=== PATIENT | female | born 1965 | race Caucasian/White ===

== ENCOUNTER 2018-06-11 02:08 | Inpatient (IN) | payer SELFPAY ==
[2018-06-11] MEDS ORDERED: Albuterol Sulfate 2.5 mg/0.5 ml Neb ONE (03:17)
[2018-06-11] MEDS ORDERED: Albuterol Sulfate 2.5 mg/3 ml Neb ONE ×3 (03:17)
[2018-06-11 04:24] LABS: CO2 Tension 54.1 mmHg (35.0-45.0); pH, Arterial 7.26 (7.35-7.45)
[2018-06-11 04:25] LABS: Actual Bicarbonate (HCO3a) 23.8 mEq/L (22-28); Base Excess (BEa) 3.7 mEq/L (-2.0 to +3.0); Calcium, Ionized 1.3 mmol/L (1.12-1.30); Hemoglobin (Hb) 12.1 g/dL (12.0-16.0); O2 Tension (PaO2) 124.2 mmHg (80.0-100.0)
[2018-06-11 04:26] LABS: ALV-art Gradient 286.895 (0-20); Analyzer IN Cardio ER; Puncture Site RRA
[2018-06-11] MEDS ORDERED: Ondansetron HCl/PF 4 MG/2 ML Vial IVP PRN (05:20)
--- NOTE | 2018-06-11 06:33 | HP ---
CODE STATUS: FULL CODE. TIME OF EVALUATION: 5:30 a.m. PRIMARY CARE PHYSICIAN: Dr. Mora CHIEF COMPLAINT: Worsening shortness of breath. HISTORY OF PRESENT ILLNESS: This is a 53-year-old female patient with past medical history of long-t erm smoker, no other significant medical problems, came to the hospital after having severe gradually worsening shortness of breath that started for the last 3 hours as per the patient's report. Before this happened the patient was doing well, had the past 3 hours the patient's has been unable to respond to her rescue inhalers at home, got in severe respiratory distress, with labored breathin g, went into acute respiratory failure due to hypoxia and hypercapnia. The only alleviating factors were medical treatment, patient has ended up needing noninvasive positive pressure ventilation with i mprovement on BiPAP. She is still with significant wheezing bilaterally, unable to wean off the BiPA P due to significant drop in saturation and increasing breathing labor. REVIEW OF SYSTEMS: CONSTITUTIONAL: No fever or chills, generalized weakness. RESPIRATORY: The patient had cough, scant sputum production, severe shortness of breath. CARDIOVASC ULAR: No chest pain, palpitations. GASTROINTESTINAL: No nausea, vomiting or diarrhea, abdominal pain. IMPORT EXPORT COORDINATOR: No dizziness, headache or feeling lightheaded. GENITOURINARY: No burning with urination. EXTREMITIES: No leg swelling. All other systems were negative except for the findings mentioned above. PAST MEDICAL HISTORY: Negative. PAST SURGICAL HISTORY: Appendectomy, hysterectomy, tonsillectomy. PSYCHIATRIC HISTORY: Depression. SOCIAL HISTORY: Drinks socially rarely. No drugs. The patient smokes cigarettes on a daily basis. FAMILY HISTORY: Reviewed and noncontributory for current presentation. ALLERGIES: No known drug allergies. MEDICATIONS: Patient has a rescue inhaler, does not remember the name. PHYSICAL EXAMINATION: VITAL SIGNS: On presentation, blood pressure 138/82, with a heart rate 107, respiratory rate was 24, temperature 99.5, saturation was 85 on room air. GENERAL APPEARANCE: The patient is alert, oriented, not in acute distress unless the patient is off the BiPAP. HEENT: Eyes: Normal conjunctivae. Moist oral mucosa. Anicteric. NECK: No JVD. RESPIRATORY: Bilateral air entry is reduced, bilateral wheezing, symmetric expansion that is decreas ed CARDIOVASCULAR: Patient is tachycardic, regular rhythm. No murmurs, no gallop. No edema. ABDOMEN: Soft, normal bowel sounds. MUSCULOSKELETAL: Baseline range of motion and strength. No tenderness. SKIN: Warm and intact. No pallor, no rash, no redness. NEUROLOGIC: Baseline sensorium. No evidence of any new focal weakness. Baseline speech. Cranial n erves seem to be intact. PSYCHIATRIC: The patient in a good mood, oriented, optimal judgment. LABORATORY DATA: EKG with performing physician showed no significant abnormalities. Chest x-ray meenakshi wed no abnormalities. ABG was done, the patient's pH 7.26, pCO2 of 54, pO2 of 134. CBC: White count 10.9, hemoglobin 12.3 , platelet count 270. Chemistry: Sodium 145, potassium 4.1, chloride 111, CO2 of 23, anion gap 15, BUN 11, creatinine 0.9, GFR 64, glucose 137, calcium 9, total bilirubin 0.2. The rest of LFTs are ne gative. Beta natriuretic peptide is 38. Troponin is negative. ASSESSMENT AND PLAN: The patient was placed in IMCU for the following medical problems. 1. Acute hypoxic and hypercarbic respiratory failure. The patient needing noninvasive positive pres sure ventilation on BiPAP. The symptoms have improved, she is more at ease right now. We will delaney nue antibiotics, steroids and DuoNebs. Pulmonary consult. It looks like the patient has no known di agnosis of COPD. Advised to quit smoking. 2. Chronic obstructive pulmonary disease exacerbation leading to acute hypoxic respiratory failure. Treatment as above. 3. Tachycardia secondary to acute respiratory distress. We will treat underlying pathology. 4. Deep venous thrombosis prophylaxis.
--- NOTE | 2018-06-11 07:50 | PDOC.PULCN ---
Pulmonology Consult: HPI - Date of Consult Date: 06/11/18 Time: 07:45 - Consult Details Reason for Consult: COPD Exacerbation Requesting Physician: Se - History of Present Illness HPI: ROSAS CHANDLER is a 53 year-old F admitted for COPD exacerbation, she was transferred from [place] for higher level of care. Patient has smoked 1ppd of cigarettes for 40 years but says she has never been diagnosed with COPD, does not use o2 at home, does not work, but has no limitations to ADLs. Her PMH is significant for allergies and unspecified bleeding disorder which was resolved in the after hysterectomy. She states she started having trouble breathing 06/09 around 0400 and it got progressively worse until she came into the ER last night. She tried her rescue inhaler at home but this did not help. She states she was coughing and had sputum. She denies fevers, chills or sweats. Her only hospitalizations in the past were for her appendectomy and hysterectomy. Pulmonology Consult: ROS - Review of Systems Constitutional: negative: fever, chills, sweats Cardiovascular: negative: chest pain (soreness 2/2 coughing), palpitations, edema, light headedness Respiratory: congestion, cough, chest soreness, productive cough, short of breath, tachypnea, wheezing Pulmonology Consult: PMH Source: patient Past Medical History: bleeding disorder resolved after hystectomy allergies - Family History Family history: reviewed and not pertinent - Social History Smoking Status: Current every day smoker (40 pack-year smoking history) Alcohol Use: none Drug Use History: none Living Situation: with family/parents Pulmonology Consult: Meds - Medications MAR Reviewed: Yes Medications: Current Medications Acetaminophen (Tylenol) 650 mg PO Q4H PRN PRN Reason: Headache/Fever or Pain Albuterol/Ipratropium (Duoneb) 3 ml NEB [id number] Enoxaparin Sodium (Lovenox) 40 mg SC 0900 JL Levofloxacin 750 mg/ Device 150 mls @ 100 mls/hr IVPB Q24HR JL Methylprednisolone Sodium Succinate (Solu-Medrol) 40 mg IVP Q6HR JL Ondansetron HCl (Zofran) 4 mg IVP Q6H PRN PRN Reason: Nausea/Vomiting - Allergies Allergies/Adverse Reactions: Allergies Allergy/AdvReac Type Severity Reaction Status Date / Time No Known Allergies Allergy Unverified 06/11/18 05:42 Pulmonology Consult: PE - Physical Exam Constitutional: NAD HEENT: PERRLA, moist MMs Neck: no nodes Cardiovascular: RRR, no significant murmur Respiratory: decreased breath sounds, prolonged expiratory phase, wheezes Gastrointestinal: soft, non-tender, no distention, positive bowel sounds Musculoskeletal: no edema, pulses present Neurological: non-focal, moves all 4 limbs Psychiatric: normal affect, A&O x 3 Skin: no rash, cap refill <2 seconds Pulmonology Consult: Results - ABG Interpretation ABG Results: ABG pH 7.26 (7.35-7.45) L 06/11/18 03:24 ABG pCO2 54.1 mmHg (35.0-45.0) H 06/11/18 03:24 ABG O2 Sat Calc/Felipe 98.2 % (94.0-98.0) H 06/11/18 03:24 ABG Base Excess 3.7 mEq/L (-2.0 to +3.0) H 06/11/18 03:24 Pulmonology Consult: A/P - Problem (1) COPD with exacerbation Current Visit: Yes Code(s): J44.1 - CHRONIC OBSTRUCTIVE PULMONARY DISEASE W ( ACUTE) EXACERBATION Status: Acute (2) Acute on chronic respiratory failure with hypoxia and hypercapnia Current Visit: Yes Code(s): J96.21 - ACUTE AND CHRONIC RESPIRATORY FAILURE WITH HYPOXIA; J96.22 - ACUTE AND CHRONIC RESPIRATORY FAILURE WITH HYPERCAPNIA Status: Acute - Time Time: 50% of the time was spent in coordination of care (as documented) at patient's floor/unit and/or counseling patient. Time with Patient: greater than 50 minutes - Plan Plan: # Acute hypoxic respiratory failure w/ hypoxia and hypercarbia - required Bipap in ED 2/ resp distress - 95% on 3L on arrival to ED from EMS - Now at 97% on 2L NC, breathing comfortably, still wheezing # COPD Exacerbation - methyprednisolone - levoquin - O2 support - CXR shows hyperinflation, will need spirometry and ICS/LAMA upon d/c - 5 day course of steroids + Abx - maintain o2 sat > 90% # Tobacco Cessation - patient is motivated to quit smoking after this episode - says she will go cold turkey - discussed benefits extensively Diet: regular Fluids: TKO Code: full Dispo: likely ok for transfer to floor this afternoon pending Dr. Thompson recs
[2018-06-11] MEDS: Enoxaparin Sodium 40 MG/0.4 ML SYRINGE SC SCH (08:16)
[2018-06-11] MEDS ORDERED: Magnesium 2 GM/NS 0.9% 100 ML 3 GM in Premix Bag 1 BAG IVPB SCH (11:15)
[2018-06-11] MEDS ORDERED: Magnesium Sulfate 3 GM in Sodium Chloride 0.9% 100 ML IVPB SCH (12:00)
[2018-06-11] MEDS: ALPRAZolam 0.25 MG TAB PO PRN (16:46)
[2018-06-11] MEDS: Sodium Chloride 0.45% 1,000 ML IV SCH (16:46)
[2018-06-11 17:14] LABS: Actual Bicarbonate (HCO3a) 25.8 mEq/L (22-28); CO2 Tension 46.1 mmHg (35.0-45.0); Hemoglobin (Hb) 12.6 g/dL (12.0-16.0); O2 Tension (PaO2) 129.4 mmHg (80.0-100.0); pH, Arterial 7.37 (7.35-7.45)
[2018-06-11 17:15] LABS: Calcium, Ionized 1.2 mmol/L (1.12-1.30); Puncture Site RRA
[2018-06-11 17:16] LABS: ALV-art Gradient 34.005 (0-20)
--- NOTE | 2018-06-11 17:58 | CON ---
DATE OF CONSULTATION: 06/11/2018 HISTORY OF PRESENT ILLNESS: Ms. De La Cruz is a 53-year-old female followed by Dr. Justine Alba. She has a long history of asthma and tobacco use. She tells me that her sister told her to remind all the doctors that she is a CO2 retainer. She never recalls having a blood gas done when she was stable. She does have blood gas from 3 o'clock this morning showing a pH of 7.26, pCO2 of 54 , and pO2 of 124. This is more suggestive of acute CO2 retention and chronic CO2 retention. She says she has been sick for several days, but has been trying to delay coming to the hospital. PAST MEDICAL HISTORY: Remarkable for a hysterectomy. FAMILY HISTORY: Negative for lung disease in early age, although there is a family history of chronic obstructive pulmonary disease. SOCIAL HISTORY: She is a current pack-a-day smoker, not a drinker. Does not use drugs. REVIEW OF SYSTEMS: 10 point system review completed; otherwise negative. Remarkable for saying that she can walk as far as she needs to on a daily basis when she feels well. I asked her if she could walk 5 miles nonstop, she said sure. She does not have a nebulizer at home. She has an inhaler. She cannot recall the name of it. PHYSICAL EXAMINATION: GENERAL: Ms. De La Cruz is a 53-year-old female. She has a long history of asthma and tobacco use VITAL SIGNS: She is afebrile, heart rate is 110, respiratory rate 20, oximetry is 98 on 2 liters, blood pressure 114/23. HEENT: Pupils are equal. Sclerae are anicteric. NECK: Supple. No lymphadenopathy. LUNGS: Clear and distant, but she does have a long expiratory phase. She is not using accessory muscles. HEART: Regular rhythm. S1 and S2 are normal. ABDOMEN: Soft and nontender. EXTREMITIES: Without clubbing, cyanosis, or edema. Chest radiograph done in [place] shows no infiltrates. IMPRESSION: Acute respiratory insufficiency associated with chronic obstructive pulmonary disease exacerbation. I doubt this is simply asthma, although the history of being able to walk as far as she wants would argue that she has more asthma than COPD. This only can be sorted out when she is "well." She will continue with steroids, nebulizer treatments, antibiotics, BiPAP as needed. I recommended the addition of a magnesium bolus this afternoon. I will follow up with the other physicians caring for her. I have explained to her that she has no choice, but to quit smoking. This is a 70 minute consult with greater than 50% of time spent on unit with coordination of care. DANNA
[2018-06-11] MEDS: Famotidine 20 MG TAB PO SCH (20:49)
[2018-06-11] MEDS: Acetaminophen 325 MG TAB PO PRN (20:50)
[2018-06-12] MEDS: Sodium Chloride 0.45% 1,000 ML IV SCH ×3 (02:52→23:28)
[2018-06-12] MEDS: ALPRAZolam 0.25 MG TAB PO PRN ×3 (02:59→20:22)
[2018-06-12] MEDS: Benzonatate 100 MG CAP PO PRN ×2 (05:09→20:23)
[2018-06-12 06:00] LABS: Anion Gap 14 mmol/L (10-20); BUN (Urea Nitrogen) 14 mg/dL (9.8-20.1); Calc. Creatinine Clearance 91 mL/min (70-130); Calcium 9.2 mg/dL (7.8-10.44); Carbon Dioxide 20 mmol/L (22-29); Chloride 110 mmol/L (98-107); Estimated GFR-MDRD 84; Glucose 156 mg/dL (70-105); Potassium 4.9 mmol/L (3.5-5.1); Sodium 139 mmol/L (136-145)
[2018-06-12 06:54] LABS: Band 18 % (5-11); Hemoglobin 12.8 g/dL (12.0-16.0); Lymphocytes 6 % (21-51); MDiff Complete? YES; Mean Corpuscular HGB CONC 32.2 g/dL (32.0-36.0); Mean Corpuscular Hemoglobin 27.2 pg (27.0-31.0); Mean Corpuscular Volume 84.5 fL (78.0-98.0); Mean Platelet Volume 7.1 fL (7.4-10.4); Monocytes 1 % (0-10); Neutrophil 75 % (42-75); Platelet Count 277 thou/uL (130-400); RBC Distribution Width 12.8 % (11.5-14.5); Red Blood Cell (RBC) Count 4.71 mill/uL (4.20-5.40); White Blood Cell (WBC) Count 19.6 thou/uL (4.8-10.8)
[2018-06-12] MEDS: Loratadine 10 MG TAB PO SCH (07:52)
[2018-06-12] MEDS: Enoxaparin Sodium 40 MG/0.4 ML SYRINGE SC SCH (07:53)
[2018-06-12] MEDS: Famotidine 20 MG TAB PO SCH ×2 (07:53→20:22)
[2018-06-12] MEDS: Fluticasone Propionate Nasal Spray 16 gm Bottle NASAL SCH (07:56)
[2018-06-12] MEDS: Nicotine 14 MG PATCH TD SCH (11:21)
--- NOTE | 2018-06-12 12:38 | PDOC.PN ---
- Subjective Encounter Start Date: 06/12/18 Encounter Start Time: 10:45 Patient seen and examined for resp failure. Feeling somewhat better. still has coughing spell with wheezing. Has runny nose. No other complaints. No overnight events - Objective Resuscitation Status: Resuscitation Status FULL:Full Resuscitation MAR Reviewed: Yes Vital Signs & Weight: Vital Signs (12 hours) Temp Pulse Resp BP Pulse Ox 06/12/18 11:35 97.9 F 93 28 H 105/59 L 97 06/12/18 10:16 100 20 100 06/12/18 08:00 97.1 F L 101 H 25 H 100 06/12/18 07:24 97.1 F L 101 H 25 H 99/79 100 06/12/18 07:11 98 06/12/18 07:09 98 20 98 06/12/18 04:00 97.5 F L 96 16 105/69 98 06/12/18 03:21 95 20 98 Weight Weight 138 lb 14.4 oz I&O: 06/11/18 06/12/18 06/13/18 06:59 06:59 06:59 Intake Total 2400 Output Total 1750 Balance 650 Result Diagrams: 06/12/18 04:00 06/12/18 05:30 Radiology Reviewed by me: Yes (CXR - no infiltrates) EKG Reviewed by me: Yes (Tele SR/ST) Phys Exam - Physical Examination Mild resp distress Respiratory: wheezing present No rales. Scat rhonchi. Mild accessory muscle use. Cardiovascular: RRR, no significant murmur, no rub no heaves Gastrointestinal: soft, non-tender, no distention, positive bowel sounds Musculoskeletal: no edema, pulses present Neurological: non-focal, normal sensation, moves all 4 limbs Psychiatric: normal affect, A&O x 3 Dx/Plan - Plan DVT proph w/SCDs IMPRESSION: 1. Acute hypoxic/hypercapnic resp failure due to Asthma/? COPD exacerbation 2. Tobacco dep - counselled. 3. Depression 4. Leucocytosis - prob steroid induced 5. CKD 2 PLAN: Cont O2/Nebs Cont steroids/Levaquin Cont NIPPV PRN Nicotin patch AM labs Review of Systems - Review of Systems Cardiovascular: negative: chest pain, palpitations, orthopnea, paroxysmal nocturnal dyspnea, edema, light headedness, other Gastrointestinal: negative: Nausea, Vomiting, Abdominal Pain, Diarrhea, Constipation, Melena, Hematochezia, Other - Medications/Allergies Allergies/Adverse Reactions: Allergies Allergy/AdvReac Type Severity Reaction Status Date / Time No Known Allergies Allergy Verified 06/11/18 10:49 Medications: Current Medications Acetaminophen (Tylenol) 650 mg PO Q4H PRN PRN Reason: Headache/Fever or Pain Last Admin: 06/11/18 20:50 Dose: 650 mg Albuterol/Ipratropium (Duoneb) 3 ml NEB [id number] PRN PRN Reason: SOB &/or Wheezing Last Admin: 06/11/18 16:26 Dose: 3 ml Albuterol/Ipratropium (Duoneb) 3 ml NEB [id number] JL Last Admin: 06/12/18 10:16 Dose: 3 ml Alprazolam (Xanax) 0.25 mg PO QIDPRN PRN PRN Reason: Anxiety Last Admin: 06/12/18 02:59 Dose: 0.25 mg Benzonatate (Tessalon) 100 mg PO Q6H PRN PRN Reason: Cough Last Admin: 06/12/18 05:09 Dose: 100 mg Enoxaparin Sodium (Lovenox) 40 mg SC 0900 [facility] Last Admin: 06/12/18 07:53 Dose: 40 mg Famotidine (Pepcid) 20 mg PO BID [facility] Last Admin: 06/12/18 07:53 Dose: 20 mg Fluticasone Propionate (Flonase Nasal [place]) 0 gm NASAL DAILY [facility] Last Admin: 06/12/18 07:56 Dose: 1 spray Levofloxacin 750 mg/ Device 150 mls @ 100 mls/hr IVPB Q24HR [facility] Last Admin: 06/12/18 05:09 Dose: 150 mls Sodium Chloride (1/2 Normal Saline) 1,000 mls @ 100 mls/hr IV .Q10H [facility] Last Admin: 06/12/18 11:21 Dose: 1,000 mls Ipratropium [place] (Atrovent 0.06% Nasal Inhaler) 0 ml NASAL QID [facility] Loratadine (Claritin) 10 mg PO DAILY [facility] Last Admin: 06/12/18 07:52 Dose: 10 mg Methylprednisolone Sodium Succinate (Solu-Medrol) 40 mg IVP Q6HR [facility] Last Admin: 06/12/18 11:21 Dose: 40 mg Nicotine (Nicoderm Patch) 14 mg TD Q24HR [facility] Last Admin: 06/12/18 11:21 Dose: 14 mg Ondansetron HCl (Zofran) 4 mg IVP Q6H PRN PRN Reason: Nausea/Vomiting Sodium Chloride (Flush - Normal Saline) 10 ml IVF Q12HR [facility] Sodium Chloride (Flush - Normal Saline) 10 ml IVF PRN PRN PRN Reason: Saline Flush
[2018-06-12] MEDS: Ipratropium Bromide 0.06% Nasal Inhaler 15ml NASAL SCH ×3 (12:40→20:23)
--- NOTE | 2018-06-12 21:59 | PRG ---
DATE OF SERVICE: 06/12/2018 SUBJECTIVE: Ms. De La Cruz says she feels better. She hates having BiPAP mask on, so we fitted her with a nasal mask and she tolerates this much better. I have explained to her the importance of . OBJECTIVE: VITAL SIGNS: She is afebrile, heart rate is 100, respiratory rate is 21, oximetry is 100% on 3 liter s, blood pressure 105/59. LUNGS: Remarkable for coarse wheezes. She is improved compared to yesterday. Her expiratory phase is shorter. HEART: Regular rhythm. ABDOMEN: Soft. IMPRESSION: Chronic obstructive pulmonary disease exacerbation/reactive airways. PLAN: Continue current care.
[2018-06-13] MEDS: Benzonatate 100 MG CAP PO PRN ×3 (03:35→21:06)
[2018-06-13] MEDS: ALPRAZolam 0.25 MG TAB PO PRN ×4 (03:36→21:06)
[2018-06-13 04:11] LABS: #Lymphocytes 1.4 thou/uL (1.20-3.40); #Monocytes 0.4 thou/uL (0.11-0.59); #Neutrophils 15.5 thou/uL (1.40-6.50); %Eosinophils 0.2 % (0.0-10.0); %Lymphocytes 8.1 % (21.0-51.0); %Monocytes 2.2 % (0.0-10.0); %Neutrophils 89.4 % (42.0-75.0); Hemoglobin 12.1 g/dL (12.0-16.0); Mean Corpuscular HGB CONC 31.8 g/dL (32.0-36.0); Mean Corpuscular Volume 84.9 fL (78.0-98.0); Mean Platelet Volume 7.4 fL (7.4-10.4); Platelet Count 261 thou/uL (130-400); RBC Distribution Width 12.7 % (11.5-14.5); Red Blood Cell (RBC) Count 4.47 mill/uL (4.20-5.40); White Blood Cell (WBC) Count 17.3 thou/uL (4.8-10.8)
[2018-06-13 04:33] LABS: Anion Gap 13 mmol/L (10-20); BUN (Urea Nitrogen) 18 mg/dL (9.8-20.1); Calc. Creatinine Clearance 88 mL/min (70-130); Calcium 9.4 mg/dL (7.8-10.44); Carbon Dioxide 25 mmol/L (22-29); Chloride 108 mmol/L (98-107); Estimated GFR-MDRD 81; Glucose 128 mg/dL (70-105); Potassium 4.7 mmol/L (3.5-5.1); Sodium 141 mmol/L (136-145)
[2018-06-13] MEDS: Enoxaparin Sodium 40 MG/0.4 ML SYRINGE SC SCH (08:44)
[2018-06-13] MEDS: Loratadine 10 MG TAB PO SCH (08:45)
[2018-06-13] MEDS: Famotidine 20 MG TAB PO SCH ×2 (08:45→21:06)
[2018-06-13] MEDS: Sodium Chloride 0.45% 1,000 ML IV SCH ×3 (08:47→23:05)
[2018-06-13] MEDS: Fluticasone Propionate Nasal Spray 16 gm Bottle NASAL SCH (08:48)
[2018-06-13] MEDS: Ipratropium Bromide 0.06% Nasal Inhaler 15ml NASAL SCH ×4 (08:49→21:07)
[2018-06-13] MEDS: Nicotine 14 MG PATCH TD SCH (10:12)
--- NOTE | 2018-06-13 17:06 | PDOC.PN ---
- Subjective Encounter Start Date: 06/13/18 Encounter Start Time: 10:45 Patient seen and examined for Resp failure. Feels better. On intermittent NIPPV. No new complaints. No overnight events - Objective Resuscitation Status: Resuscitation Status FULL:Full Resuscitation MAR Reviewed: Yes Vital Signs & Weight: Vital Signs (12 hours) Temp Pulse Resp BP Pulse Ox 06/13/18 15:58 102 H 20 06/13/18 15:28 97.3 F L 106 H 29 H 128/62 98 06/13/18 12:40 108 H 24 H 93 L 06/13/18 11:21 97.2 F L 107 H 24 H 118/69 100 06/13/18 10:19 109 H 20 98 06/13/18 08:00 98.2 F 109 H 16 94 L 06/13/18 07:39 98.2 F 94 16 102/65 97 06/13/18 07:08 102 H 20 98 06/13/18 07:00 99 Weight Weight 142 lb 11.2 oz I&O: 06/12/18 06/13/18 06/14/18 06:59 06:59 06:59 Intake Total 2400 1700 Output Total 1750 1825 Balance 650 -125 Result Diagrams: 06/13/18 03:30 06/13/18 03:30 EKG Reviewed by me: Yes (Tele SR) Phys Exam - Physical Examination Constitutional: NAD Respiratory: wheezing present B/L rhonchi with scat rales at bases Cardiovascular: RRR, no rub Gastrointestinal: soft, non-tender, positive bowel sounds Musculoskeletal: no edema Neurological: moves all 4 limbs Dx/Plan - Plan DVT proph w/SCDs IMPRESSION: 1. Acute hypoxic/hypercapnic resp failure due to Asthma/? COPD exacerbation 2. Tobacco dep - counselled. 3. Depression 4. Leucocytosis - prob steroid induced 5. CKD 2 6. sinus tachycardia due to #1 PLAN: Cont O2/Nebs/Steroids/Levaquin Cont NIPPV PRN Nicotin patch AM labs Review of Systems - Review of Systems Respiratory: Cough, Dry, SOB with Excertion, Wheezing. negative: Shortness of Breath, Hemoptysis, Pleuritic Pain, Sputum Cardiovascular: negative: chest pain, palpitations, orthopnea, paroxysmal nocturnal dyspnea, edema, light headedness, other - Medications/Allergies Allergies/Adverse Reactions: Allergies Allergy/AdvReac Type Severity Reaction Status Date / Time No Known Allergies Allergy Verified 06/11/18 10:49 Medications: Current Medications Acetaminophen (Tylenol) 650 mg PO Q4H PRN PRN Reason: Headache/Fever or Pain Last Admin: 06/11/18 20:50 Dose: 650 mg Albuterol/Ipratropium (Duoneb) 3 ml NEB [id number] PRN PRN Reason: SOB &/or Wheezing Last Admin: 06/11/18 16:26 Dose: 3 ml Albuterol/Ipratropium (Duoneb) 3 ml NEB [id number] Last Admin: 06/13/18 15:58 Dose: 3 ml Alprazolam (Xanax) 0.25 mg PO QIDPRN PRN PRN Reason: Anxiety Last Admin: 06/13/18 15:52 Dose: 0.25 mg Benzonatate (Tessalon) 100 mg PO Q6H PRN PRN Reason: Cough Last Admin: 06/13/18 15:49 Dose: 100 mg Enoxaparin Sodium (Lovenox) 40 mg SC 0900 [facility] Last Admin: 06/13/18 08:44 Dose: 40 mg Famotidine (Pepcid) 20 mg PO BID [facility] Last Admin: 06/13/18 08:45 Dose: 20 mg Fluticasone Propionate (Flonase Nasal [place]) 0 gm NASAL DAILY [facility] Last Admin: 06/13/18 08:48 Dose: 2 spray Levofloxacin 750 mg/ Device 150 mls @ 100 mls/hr IVPB Q24HR [facility] Last Admin: 06/13/18 05:05 Dose: 150 mls Sodium Chloride (1/2 Normal Saline) 1,000 mls @ 100 mls/hr IV .Q10H [facility] Last Admin: 06/13/18 11:59 Dose: 1,000 mls Ipratropium [place] (Atrovent 0.06% Nasal Inhaler) 0 ml NASAL QID [facility] Last Admin: 06/13/18 13:30 Dose: 2 spr Loratadine (Claritin) 10 mg PO DAILY [facility] Last Admin: 06/13/18 08:45 Dose: 10 mg Methylprednisolone Sodium Succinate (Solu-Medrol) 40 mg IVP Q6HR [facility] Last Admin: 06/13/18 11:46 Dose: 40 mg Nicotine (Nicoderm Patch) 14 mg TD Q24HR [facility] Last Admin: 06/13/18 10:12 Dose: 14 mg Ondansetron HCl (Zofran) 4 mg IVP Q6H PRN PRN Reason: Nausea/Vomiting Sodium Chloride (Flush - Normal Saline) 10 ml IVF Q12HR [facility] Last Admin: 06/13/18 08:45 Dose: 10 ml Sodium Chloride (Flush - Normal Saline) 10 ml IVF PRN PRN PRN Reason: Saline Flush
--- NOTE | 2018-06-13 18:49 | PRG ---
DATE OF SERVICE: 06/13/2018 SUBJECTIVE: Ms. Faby De La Cruz did well overnight. She tolerated the nasal CPAP. OBJECTIVE: VITAL SIGNS: She is afebrile, heart rate is 102, respiratory rate is 20, oximetry is in the low 90s on 2 liters. She is wearing nasal BiPAP when she goes to sleep. LUNGS: Still remarkable for diffuse wheezes along expiratory phase. CARDIOVASCULAR: Regular rhythm. ABDOMEN: Soft. EXTREMITIES: Without clubbing, cyanosis, or edema. LABORATORY DATA: White count 17.3, hemoglobin 12.1, platelets 261. Electrolytes: Sodium 141, potassium 4.7, chloride 108, bicarbonate 25, BUN 18, creatinine 0.7. IMPRESSION AND PLAN: Chronic obstructive pulmonary disease exacerbation, most likely. Her history i s more suggestive of asthma, but we will be able to sort this out until she is "well". We will continue with current care in the intermediate care unit. I would not transfer her out.
[2018-06-13] MEDS: Acetaminophen 325 MG TAB PO PRN (21:06)
[2018-06-14 04:20] LABS: #Lymphocytes 1.4 thou/uL (1.20-3.40); #Monocytes 0.5 thou/uL (0.11-0.59); #Neutrophils 11.6 thou/uL (1.40-6.50); %Basophils 0.1 % (0.0-1.0); %Eosinophils 0.2 % (0.0-10.0); %Lymphocytes 10.2 % (21.0-51.0); %Monocytes 3.6 % (0.0-10.0); %Neutrophils 85.9 % (42.0-75.0); Hemoglobin 11.8 g/dL (12.0-16.0); Mean Corpuscular HGB CONC 32.7 g/dL (32.0-36.0); Mean Corpuscular Hemoglobin 27.6 pg (27.0-31.0); Mean Corpuscular Volume 84.3 fL (78.0-98.0); Mean Platelet Volume 7.1 fL (7.4-10.4); Platelet Count 267 thou/uL (130-400); RBC Distribution Width 12.8 % (11.5-14.5); Red Blood Cell (RBC) Count 4.28 mill/uL (4.20-5.40); White Blood Cell (WBC) Count 13.5 thou/uL (4.8-10.8)
[2018-06-14 04:43] LABS: ALT (SGPT) 22 U/L (8-55); AST (SGOT) 21 U/L (5-34); Albumin 3.7 g/dL (3.5-5.0); Alkaline Phosphatase 72 U/L (40-150); Anion Gap 14 mmol/L (10-20); BUN (Urea Nitrogen) 15 mg/dL (9.8-20.1); Bilirubin, Total 0.2 mg/dL (0.2-1.2); Calc. Creatinine Clearance 91 mL/min (70-130); Calcium 9.2 mg/dL (7.8-10.44); Carbon Dioxide 23 mmol/L (22-29); Chloride 108 mmol/L (98-107); Estimated GFR-MDRD 81; Globulin 2.2 g/dL (2.4-3.5); Glucose 126 mg/dL (70-105); Potassium 4.5 mmol/L (3.5-5.1); Protein, Total 5.9 g/dL (6.0-8.3); Sodium 140 mmol/L (136-145)
[2018-06-14] MEDS: Fluticasone Propionate Nasal Spray 16 gm Bottle NASAL SCH (08:34)
[2018-06-14] MEDS: Nicotine 14 MG PATCH TD SCH (08:35)
[2018-06-14] MEDS: ALPRAZolam 0.25 MG TAB PO PRN ×2 (08:35→21:16)
[2018-06-14] MEDS: Loratadine 10 MG TAB PO SCH (08:35)
[2018-06-14] MEDS: Ipratropium Bromide 0.06% Nasal Inhaler 15ml NASAL SCH ×4 (08:35→21:17)
[2018-06-14] MEDS: Famotidine 20 MG TAB PO SCH ×2 (08:35→23:49)
[2018-06-14] MEDS: Enoxaparin Sodium 40 MG/0.4 ML SYRINGE SC SCH (08:36)
--- NOTE | 2018-06-14 13:42 | PRG ---
DATE OF SERVICE: 06/14/2018 SUBJECTIVE: Faby De La Cruz says she is feeling better. She says she needs the BiPAP at night or w hen she sleeps anymore. Her lungs are still remarkable for wheezes with a prolonged expiratory phase , but she is improved. Heart rates in the 80s-100 range also that she is improved. She has no accessory muscle use now. OBJECTIVE: VITAL SIGNS: She is afebrile. Oximetry is 99 on 2 liters, blood pressure 113/75. HEART: Regular rhythm. ABDOMEN: Soft. LABORATORY DATA: White count 13.5, hemoglobin 11.8, and platelets 267. Sodium 140, potassium 4.5, chloride 108, bicarb 23, BUN 15, creatinine 0.7. IMPRESSION: Chronic obstructive pulmonary disease exacerbation with respiratory failure, requiring B iPAP, clinically improved. She will be in the hospital several more days. Again, discussed smoking cessation.
[2018-06-14] MEDS: Sodium Chloride 0.45% 1,000 ML IV SCH (17:36)
[2018-06-14] MEDS: guaiFENesin 200 MG TAB PO PRN ×2 (17:54)
[2018-06-14] MEDS: Acetaminophen 325 MG TAB PO PRN (17:54)
--- NOTE | 2018-06-14 21:34 | PDOC.PN ---
- Subjective Encounter Start Date: 06/14/18 Encounter Start Time: 12:00 Patient seen and examined for Resp failure. Feels beter. SOb improving. on intermittent BiPAP. - Objective Resuscitation Status: Resuscitation Status FULL:Full Resuscitation MAR Reviewed: Yes Vital Signs & Weight: Vital Signs (12 hours) Temp Pulse Resp BP Pulse Ox 06/14/18 19:37 97.5 F L 101 H 22 H 110/76 92 L 06/14/18 19:00 110 H 16 98 06/14/18 15:45 98.3 F 105 H 19 110/76 94 L 06/14/18 14:30 107 H 16 96 06/14/18 10:54 97.8 F 100 20 113/75 99 06/14/18 09:58 99 18 99 Weight Weight 140 lb 11.2 oz I&O: 06/13/18 06/14/18 06/15/18 06:59 06:59 06:59 Intake Total 1700 4050 1980 Output Total 1825 3900 900 Balance -985 249 1039 Result Diagrams: 06/14/18 03:32 06/14/18 03:32 EKG Reviewed by me: Yes (Tele SR) Phys Exam - Physical Examination Constitutional: NAD Respiratory: no rales, wheezing present (improving) Cardiovascular: RRR, no rub Gastrointestinal: soft, non-tender, positive bowel sounds Musculoskeletal: no edema Dx/Plan - Plan continue antibiotics, respiratory therapy, DVT proph w/lovenox, DVT proph w/SCDs IMPRESSION: 1. Acute hypoxic/hypercapnic resp failure due to Asthma/? COPD exacerbation - improving 2. Tobacco dep - counselled. 3. Depression/Anxiety 4. Leucocytosis - prob steroid induced 5. CKD 2 6. sinus tachycardia due to #1 PLAN: Cont O2/Nebs/low dose Steroids/Levaquin PO Cont NIPPV PRN Nicotin patch Review of Systems - Review of Systems Respiratory: SOB with Excertion, Wheezing. negative: Cough, Dry, Shortness of Breath, Hemoptysis, Pleuritic Pain, Sputum Cardiovascular: negative: chest pain, palpitations, orthopnea, paroxysmal nocturnal dyspnea, edema, light headedness, other - Medications/Allergies Allergies/Adverse Reactions: Allergies Allergy/AdvReac Type Severity Reaction Status Date / Time No Known Allergies Allergy Verified 06/11/18 10:49 Medications: Current Medications Acetaminophen (Tylenol) 650 mg PO Q4H PRN PRN Reason: Headache/Fever or Pain Last Admin: 06/14/18 17:54 Dose: 650 mg Albuterol/Ipratropium (Duoneb) 3 ml NEB [id number] PRN PRN Reason: SOB &/or Wheezing Last Admin: 06/11/18 16:26 Dose: 3 ml Albuterol/Ipratropium (Duoneb) 3 ml NEB [id number] [facility] Last Admin: 06/14/18 19:00 Dose: 3 ml Alprazolam (Xanax) 0.25 mg PO QIDPRN PRN PRN Reason: Anxiety Last Admin: 06/14/18 21:16 Dose: 0.25 mg Benzonatate (Tessalon) 100 mg PO Q6H PRN PRN Reason: Cough Last Admin: 06/13/18 21:06 Dose: 100 mg Enoxaparin Sodium (Lovenox) 40 mg SC 0900 [facility] Last Admin: 06/14/18 08:36 Dose: 40 mg Famotidine (Pepcid) 20 mg PO BID [facility] Last Admin: 06/14/18 08:35 Dose: 20 mg Fluticasone Propionate (Flonase Nasal [place]) 0 gm NASAL DAILY [facility] Last Admin: 06/14/18 08:34 Dose: 2 spray Guaifenesin (Organ-I Nr) 200 mg PO Q4H PRN PRN Reason: Cough Last Admin: 06/14/18 17:54 Dose: 200 mg Sodium Chloride (1/2 Normal Saline) 1,000 mls @ 100 mls/hr IV .Q10H [facility] Last Admin: 06/14/18 17:36 Dose: 1,000 mls Ipratropium [place] (Atrovent 0.06% Nasal Inhaler) 0 ml NASAL QID [facility] Last Admin: 06/14/18 21:17 Dose: 2 spr Levofloxacin (Levaquin) 500 mg PO 0600 [facility] Loratadine (Claritin) 10 mg PO DAILY [facility] Last Admin: 06/14/18 08:35 Dose: 10 mg Methylprednisolone Sodium Succinate (Solu-Medrol) 20 mg IVP Q6HR [facility] Last Admin: 06/14/18 17:35 Dose: 20 mg Nicotine (Nicoderm Patch) 14 mg TD Q24HR [facility] Last Admin: 06/14/18 08:35 Dose: 14 mg Ondansetron HCl (Zofran) 4 mg IVP Q6H PRN PRN Reason: Nausea/Vomiting Sodium Chloride (Flush - Normal Saline) 10 ml IVF Q12HR JL Last Admin: 06/14/18 21:17 Dose: 10 ml Sodium Chloride (Flush - Normal Saline) 10 ml IVF PRN PRN PRN Reason: Saline Flush
[2018-06-15 05:31] VITALS: BMI 25.6
[2018-06-15] MEDS: Benzonatate 100 MG CAP PO PRN (06:13)
--- NOTE | 2018-06-15 08:56 | PRG ---
DATE OF SERVICE: 06/15/2018 This morning she is better, still coughing, still wheezing. PHYSICAL EXAMINATION: VITAL SIGNS: Sats are 90 on room air, pulse 117, respirations 17, temperature 98, blood pressure 150 /76. CHEST: Chest revealed diffuse wheezing. CARDIAC: Normal S1, S2. No gallops. ABDOMEN: Soft. IMPRESSION: 1. Chronic obstructive pulmonary disease exacerbation. 2. Bronchitis. PLAN: Continue neb treatments, steroids, oral antibiotics. Refrain from smoking. I will follow.
[2018-06-15] MEDS ORDERED: Magnesium Sulfate 2 GM in Sodium Chloride 0.9% 100 ML IVPB SCH (09:00)
[2018-06-15] MEDS: Famotidine 20 MG TAB PO SCH ×2 (09:13→20:01)
[2018-06-15] MEDS: Enoxaparin Sodium 40 MG/0.4 ML SYRINGE SC SCH (09:13)
[2018-06-15] MEDS: Sodium Chloride 0.45% 1,000 ML IV SCH ×4 (09:13→22:12)
[2018-06-15] MEDS: Loratadine 10 MG TAB PO SCH (09:13)
[2018-06-15] MEDS: Fluticasone Propionate Nasal Spray 16 gm Bottle NASAL SCH (09:19)
[2018-06-15] MEDS: Ipratropium Bromide 0.06% Nasal Inhaler 15ml NASAL SCH (09:22)
[2018-06-15] MEDS: Nicotine 14 MG PATCH TD SCH (13:08)
--- NOTE | 2018-06-15 15:11 | PRG ---
DATE OF SERVICE: 06/15/2018 SUBJECTIVE: The patient is seen and examined at bedside. She is feeling better. OBJECTIVE: VITAL SIGNS: She is off her oxygen and saturating at 93% on room air. Temperature is 97.8, pulse is 97, respiratory rate is 17, and blood pressure is 130/76. EYES: PERRLA. Sclerae is nonicteric. NECK: Supple. No lymphadenopathy. LUNGS: Emphysematous. No wheezing. HEART: S1 and S2 normal. No S3, no S4. ABDOMEN: Soft, nontender. EXTREMITIES: No clubbing, cyanosis, or edema. NEUROLOGIC: She is alert and oriented x4. There is not any sensorimotor deficit present. Cranial n erves are intact. LABORATORY DATA: None. IMPRESSION: 1. Chronic obstructive pulmonary disease exacerbation, improved. 2. Depression/anxiety. 3. Chronic kidney disease, stage 2. PLAN: Continue her current regimen with antibiotics, DuoNebs, and steroids. Continue an IPPV p.r.n. and continue nicotine patch.
[2018-06-15] MEDS: Mometasone/Formoterol 120 PUFF INHALER INH SCH (18:15)
[2018-06-15] MEDS: Acetaminophen 325 MG TAB PO PRN (22:13)
[2018-06-15] MEDS: ALPRAZolam 0.25 MG TAB PO PRN (22:13)
--- NOTE | 2018-06-16 08:32 | PRG ---
DATE OF SERVICE: 06/16/2018 SUBJECTIVE: This morning, she is better. She is less short of breath. She is eager to go home. OBJECTIVE: VITAL SIGNS: Sats are 98% on room air, temperature 97, pulse 92, respiration 17, blood pressure 115/ 65. CHEST: Reveals decreased breath sounds, no wheezing. CARDIAC: Normal S1, S2. No gallops. ABDOMEN: Soft, no masses. IMPRESSION: Chronic obstructive pulmonary disease exacerbation, bronchitis, tobacco abuse. PLAN: She can be discharged home on tapering dose of prednisone. Follow up with Dr. Alba. She is to see Dr. Thompson in the office if she about 2-3 weeks.
[2018-06-16] MEDS: Mometasone/Formoterol 120 PUFF INHALER INH SCH ×2 (08:45→18:40)
[2018-06-16] MEDS: Ipratropium Bromide 0.06% Nasal Inhaler 15ml NASAL SCH ×6 (09:21→20:38)
[2018-06-16] MEDS: predniSONE 20 MG TAB PO SCH (09:22)
[2018-06-16] MEDS: Loratadine 10 MG TAB PO SCH (09:22)
[2018-06-16] MEDS: Famotidine 20 MG TAB PO SCH ×2 (09:23→20:37)
[2018-06-16] MEDS: ALPRAZolam 0.25 MG TAB PO PRN ×2 (09:23→20:37)
[2018-06-16] MEDS: Enoxaparin Sodium 40 MG/0.4 ML SYRINGE SC SCH (09:24)
[2018-06-16] MEDS: Fluticasone Propionate Nasal Spray 16 gm Bottle NASAL SCH (09:24)
[2018-06-16] MEDS: Sodium Chloride 0.45% 1,000 ML IV SCH ×2 (11:25→18:21)
--- NOTE | 2018-06-16 15:49 | PDOC.PN ---
- Subjective Encounter Start Date: 06/16/18 Encounter Start Time: 15:46 Subjective: nsg notes rev, overall feels that her breathing is better. SO is with her -: at bedside. SO states that she will need oxygen, specifically the small -: portable oxygen because the large tanks are too big. He feels that because he is a long distance electric trucker, he will not be able to come back home to help her out in time if she needs help or needs oxygen. both the patient and her significant other have many questions and concerns regarding the following medications: prednisone - will this make her breathing worse? and cause her to have hallucinations? albuterol - will it make the patient anxious? duo-neb - would like to know if she can be discharged on this medication guafenisin - patient's SO feels that her secretions are too thick and stuck in her throat and better at home when she takes this medication claritin - patient's SO feels that she "functions better" when she takes this in conjunction with guafenesin and would like her to have this medication every morning pt reports having hallucinations overnight, specifically that the bed was speaking to her. states that she has hallucinations with pseudofed usage. - Objective Resuscitation Status: Resuscitation Status FULL:Full Resuscitation Vital Signs & Weight: Vital Signs (12 hours) Temp Pulse Resp BP Pulse Ox 06/16/18 11:36 98.2 F 88 24 H 119/80 90 L 06/16/18 11:33 97 06/16/18 11:30 88 20 97 06/16/18 08:45 101 H 20 93 L 06/16/18 08:43 102 H 20 94 L 06/16/18 08:00 97.0 F L 101 H 20 94 L 06/16/18 07:34 97.6 F 108 H 20 140/77 91 L 06/16/18 04:00 97.8 F 93 17 115/65 93 L Weight Weight 141 lb 2 oz I&O: 06/15/18 06/16/18 06/17/18 06:59 06:59 06:59 Intake Total 1980 1560 Output Total 900 Balance 1080 1560 Result Diagrams: 06/14/18 03:32 06/14/18 03:32 Phys Exam - Physical Examination Constitutional: NAD seated in hospital bed HEENT: moist MMs, sclera anicteric Respiratory: no wheezing, no rales, no rhonchi, clear to auscultation bilateral diminished throughout, no conversational dyspnea Cardiovascular: RRR, no significant murmur, no rub Gastrointestinal: soft, non-tender, no distention, positive bowel sounds Neurological: moves all 4 limbs Dx/Plan - Plan 1. Acute hypoxic/hypercapnic resp failure due to Asthma/? COPD exacerbation - improving appreciate pulm c/s currently on room air, plan for ambulatory pulse ox check to determine O2 need - d/w pt and her SO at bedside empiric abx, nebulizer txmts, supportive care w/ anti-tussives and mucolytic agents, prednisone 2. Tobacco dep - counselled 3. Depression/Anxiety pt wants to trial wellbutrin - d/w pt given her recent issues with hallucinations, would recommend stablizing on current new meds before intiation question of whether or not patient has unipolar depression or bipolar disease ? 4. Leucocytosis - prob steroid induced continue to monitor 5. CKD 2 continue to monitor 6. sinus tachycardia - multifactorial but likely 2/2 to multiple issues above incl: prednisone use, albuterol use, acute resp failure, anxiety continue to monitor diet: as kar activity: as kar dvt ppx ambulate as tolerated d/w pt and her significant other at bedside greater than 30 minutes spent coordinating care and reviewing plan of care at bedside d/w bedside nsg Review of Systems - Medications/Allergies Allergies/Adverse Reactions: Allergies Allergy/AdvReac Type Severity Reaction Status Date / Time No Known Allergies Allergy Verified 06/11/18 10:49 Medications: Current Medications Acetaminophen (Tylenol) 650 mg PO Q4H PRN PRN Reason: Headache/Fever or Pain Last Admin: 06/15/18 22:13 Dose: 650 mg Albuterol/Ipratropium (Duoneb) 3 ml NEB [id number] PRN PRN Reason: SOB &/or Wheezing Last Admin: 06/11/18 16:26 Dose: 3 ml Albuterol/Ipratropium (Duoneb) 3 ml NEB [id number] JL Last Admin: 06/16/18 11:30 Dose: 3 ml Alprazolam (Xanax) 0.25 mg PO QIDPRN PRN PRN Reason: Anxiety Last Admin: 06/16/18 09:23 Dose: 0.25 mg Benzonatate (Tessalon) 100 mg PO Q6H PRN PRN Reason: Cough Last Admin: 06/15/18 06:13 Dose: 100 mg Enoxaparin Sodium (Lovenox) 40 mg SC 0900 [facility] Last Admin: 06/16/18 09:24 Dose: 40 mg Famotidine (Pepcid) 20 mg PO BID [facility] Last Admin: 06/16/18 09:23 Dose: 20 mg Fluticasone Propionate (Flonase Nasal [place]) 0 gm NASAL DAILY [facility] Last Admin: 06/16/18 09:24 Dose: 2 spray Guaifenesin (Organ-I Nr) 200 mg PO Q4H PRN PRN Reason: Cough Last Admin: 06/14/18 17:54 Dose: 200 mg Sodium Chloride (1/2 Normal Saline) 1,000 mls @ 100 mls/hr IV .Q10H [facility] Last Admin: 06/16/18 11:25 Dose: Not Given Ipratropium [place] (Atrovent 0.06% Nasal Inhaler) 0 ml NASAL QID [facility] Last Admin: 06/16/18 09:30 Dose: Not Given Levofloxacin (Levaquin) 500 mg PO 06 [facility] Last Admin: 06/16/18 06:03 Dose: 500 mg Loratadine (Claritin) 10 mg PO DAILY [facility] Last Admin: 06/16/18 09:22 Dose: 10 mg Mometasone Furoate/Formoterol Fumar (Dulera 200 Mcg/5 Mcg Inhaler) 2 puff INH BID-RT [facility] Last Admin: 06/16/18 08:45 Dose: 2 puff Nicotine (Nicoderm Patch) 14 mg TD Q24HR [facility] Last Admin: 06/15/18 13:08 Dose: Not Given Ondansetron HCl (Zofran) 4 mg IVP Q6H PRN PRN Reason: Nausea/Vomiting Last Admin: 06/15/18 20:01 Dose: 4 mg Prednisone (Prednisone) 40 mg PO QAM-WM [facility] Last Admin: 06/16/18 09:22 Dose: 40 mg Sodium Chloride (Flush - Normal Saline) 10 ml IVF Q12HR [facility] Last Admin: 06/16/18 11:25 Dose: Not Given Sodium Chloride (Flush - Normal Saline) 10 ml IVF PRN PRN PRN Reason: Saline Flush
[2018-06-16] MEDS: Nicotine 14 MG PATCH TD SCH (16:36)
[2018-06-17] MEDS: Mometasone/Formoterol 120 PUFF INHALER INH SCH ×2 (06:55→18:50)
[2018-06-17] MEDS: Loratadine 10 MG TAB PO SCH (09:29)
[2018-06-17] MEDS: Enoxaparin Sodium 40 MG/0.4 ML SYRINGE SC SCH (09:29)
[2018-06-17] MEDS: Famotidine 20 MG TAB PO SCH ×2 (09:29→20:22)
[2018-06-17] MEDS: predniSONE 20 MG TAB PO SCH (09:29)
[2018-06-17] MEDS: ALPRAZolam 0.25 MG TAB PO PRN ×2 (09:30→20:21)
[2018-06-17] MEDS: Fluticasone Propionate Nasal Spray 16 gm Bottle NASAL SCH (09:30)
[2018-06-17] MEDS: Ipratropium Bromide 0.06% Nasal Inhaler 15ml NASAL SCH ×3 (13:22→17:04)
[2018-06-17] MEDS: Nicotine 14 MG PATCH TD SCH (13:23)
[2018-06-17] MEDS ORDERED: guaiFENesin ER 600 MG TAB PO SCH (16:00)
--- NOTE | 2018-06-17 16:47 | PRG ---
DATE OF SERVICE: 06/17/2018 SERVICE: Pulmonary Medicine. INTERVAL HISTORY: The patient is doing outstanding from a respiratory standpoint. He denies any cur rent chest pain, nausea, vomiting, fevers or chills. She did not use her BiPAP last night. She is c oughing up a little bit of Mayank's glue type of fluid. She really feels good because she is finally starting liberated. Otherwise, there has been no notable change to her condition. OBJECTIVE: VITAL SIGNS: Afebrile, pulse 114, blood pressure 93/68, respirations 17, saturation 95% on room air. GENERAL: The patient is awake, alert, in no apparent distress. LUNGS: Excellent air entry. There is a prolonged expiratory phase. A little bit of wheezing is pre sent. I do appreciate crackles or rhonchi. HEART: Normal rate and regular. ABDOMEN: Soft, nontender, nondistended. Bowel sounds are positive. MUSCULOSKELETAL: No cyanosis or clubbing. There is no pitting in the bilateral lower extremities. NEUROLOGIC: Grossly nonfocal. LABORATORY DATA: WBC 13.5, hemoglobin 11.8, platelets 267,000. pH 7.37, pCO2 46, pO2 129 on BiPAP a t that time. Basic metabolic profile is otherwise unremarkable. Liver function studies are unremark able. ASSESSMENT: 1. Acute hypoxic and hypercapnic respiratory failure. 2. Chronic obstructive pulmonary disease with acute exacerbation, suspected. 3. Acute bronchitis. 4. Tobacco abuse. DISCUSSION AND PLAN: The patient is doing absolutely wonderful from a respiratory standpoint. We ar e going to continue her antibiotics, nebulized medications, and steroids. I will discontinue her cou gh suppressing medications and will give her a mucolytic. Pulmonary Critical Care will continue to fermín garcia while she remains in house, but at this point, she is stable for transition to the floor.
[2018-06-17] MEDS: guaiFENesin ER 600 MG TAB PO SCH (20:21)
--- NOTE | 2018-06-17 23:02 | PDOC.PN ---
- Subjective Encounter Start Date: 06/17/18 Encounter Start Time: 15:00 Subjective: nsg notes rev, overall feels "ok" w/o new c/o -: noted 87% on RA with mild ADLs (getting into wheelchair) - Objective Resuscitation Status: Resuscitation Status FULL:Full Resuscitation Vital Signs & Weight: Vital Signs (12 hours) Temp Pulse Resp BP Pulse Ox 06/17/18 22:24 86 16 95 06/17/18 20:00 97.7 F 96 18 116/72 94 L 06/17/18 18:41 98 16 95 06/17/18 16:21 97.4 F L 98 17 108/69 93 L 06/17/18 14:38 103 H 116 H 95 06/17/18 11:49 98.1 F 114 H 17 93/68 94 L Weight Weight 141 lb 8 oz I&O: 06/16/18 06/17/18 06/18/18 06:59 06:59 06:59 Intake Total 1560 375 Balance 1560 375 Result Diagrams: 06/14/18 03:32 06/14/18 03:32 Phys Exam - Physical Examination Constitutional: NAD seated in hospital bed HEENT: moist MMs Respiratory: no wheezing, no rales, no rhonchi diminished throughout, marginal air mvmt Cardiovascular: RRR, no significant murmur, no rub Gastrointestinal: soft, non-tender, positive bowel sounds Musculoskeletal: pulses present Neurological: moves all 4 limbs Psychiatric: normal affect Dx/Plan - Plan 1. Acute hypoxic/hypercapnic resp failure due to Asthma/? COPD exacerbation - improving appreciate pulm c/s currently on room air, plan for ambulatory pulse ox check to determine O2 need - d/w pt and her SO at bedside empiric abx, nebulizer txmts, supportive care w/ anti-tussives and mucolytic agents, prednisone will need o/p follow up 2. Tobacco dep - counselled 3. Depression/Anxiety pt wants to trial wellbutrin - d/w pt given her recent issues with hallucinations, would recommend stablizing on current new meds before intiation question of whether or not patient has unipolar depression or bipolar disease ? d/w pt need for o/p f/u in regards to the addition of a SSRI 4. Leucocytosis - prob steroid induced continue to monitor 5. CKD 2 continue to monitor 6. sinus tachycardia - multifactorial but likely 2/2 to multiple issues above incl: prednisone use, albuterol use, acute resp failure, anxiety continue to monitor diet: as kar activity: as kar dvt ppx ok for transfer to telemetry, start d/c planning pt on oral regimen Review of Systems - Medications/Allergies Allergies/Adverse Reactions: Allergies Allergy/AdvReac Type Severity Reaction Status Date / Time No Known Allergies Allergy Verified 06/11/18 10:49 Medications: Current Medications Acetaminophen (Tylenol) 650 mg PO Q4H PRN PRN Reason: Headache/Fever or Pain Last Admin: 06/15/18 22:13 Dose: 650 mg Albuterol/Ipratropium (Duoneb) 3 ml NEB [id number] PRN PRN Reason: SOB &/or Wheezing Last Admin: 06/11/18 16:26 Dose: 3 ml Albuterol/Ipratropium (Duoneb) 3 ml NEB [id number] JL Last Admin: 06/17/18 22:24 Dose: 3 ml Alprazolam (Xanax) 0.25 mg PO QIDPRN PRN PRN Reason: Anxiety Last Admin: 06/17/18 20:21 Dose: 0.25 mg Enoxaparin Sodium (Lovenox) 40 mg SC 0900 [facility] Last Admin: 06/17/18 09:29 Dose: 40 mg Famotidine (Pepcid) 20 mg PO BID [facility] Last Admin: 06/17/18 20:22 Dose: 20 mg Fluticasone Propionate (Flonase Nasal [place]) 0 gm NASAL DAILY [facility] Last Admin: 06/17/18 09:30 Dose: 2 spray Guaifenesin (Organ-I Nr) 200 mg PO Q4H PRN PRN Reason: Cough Last Admin: 06/14/18 17:54 Dose: 200 mg Guaifenesin (Mucinex) 1,200 mg PO Q12HR [facility] Last Admin: 06/17/18 20:21 Dose: 1,200 mg Ipratropium [place] (Atrovent 0.06% Nasal Inhaler) 0 ml NASAL QID [facility] Last Admin: 06/17/18 17:04 Dose: Not Given Levofloxacin (Levaquin) 500 mg PO 0600 [facility] Last Admin: 06/17/18 06:37 Dose: 500 mg Loratadine (Claritin) 10 mg PO DAILY [facility] Last Admin: 06/17/18 09:29 Dose: 10 mg Mometasone Furoate/Formoterol Fumar (Dulera 200 Mcg/5 Mcg Inhaler) 2 puff INH BID-RT [facility] Last Admin: 06/17/18 18:50 Dose: 2 puff Nicotine (Nicoderm Patch) 14 mg TD Q24HR [facility] Last Admin: 06/17/18 13:23 Dose: Not Given Ondansetron HCl (Zofran) 4 mg IVP Q6H PRN PRN Reason: Nausea/Vomiting Last Admin: 06/15/18 20:01 Dose: 4 mg Prednisone (Prednisone) 40 mg PO QAM-WM [facility] Last Admin: 06/17/18 09:29 Dose: 40 mg Sodium Chloride (Flush - Normal Saline) 10 ml IVF Q12HR [facility] Last Admin: 06/17/18 20:22 Dose: 10 ml Sodium Chloride (Flush - Normal Saline) 10 ml IVF PRN PRN PRN Reason: Saline Flush
[2018-06-18] MEDS: Mometasone/Formoterol 120 PUFF INHALER INH SCH (07:27)
[2018-06-18] MEDS: ALPRAZolam 0.25 MG TAB PO PRN (09:26)
[2018-06-18] MEDS: Enoxaparin Sodium 40 MG/0.4 ML SYRINGE SC SCH (09:26)
[2018-06-18] MEDS: guaiFENesin ER 600 MG TAB PO SCH (09:27)
[2018-06-18] MEDS: predniSONE 20 MG TAB PO SCH (09:27)
[2018-06-18] MEDS: Famotidine 20 MG TAB PO SCH (09:27)
[2018-06-18] MEDS: Loratadine 10 MG TAB PO SCH (09:28)
[2018-06-18] MEDS: Ipratropium Bromide 0.06% Nasal Inhaler 15ml NASAL SCH (09:29)
--- NOTE | 2018-06-18 09:30 | PRG ---
DATE OF SERVICE: 06/18/2018 SERVICE: Pulmonary Medicine INTERVAL HISTORY: The patient is doing fine from a respiratory standpoint. She denies any current c hest pain, nausea, vomiting, fevers or chills. She is breathing much more comfortably, but has yet t o be out of bed too much. She did not use her BiPAP for the last 48 hours. We are waiting on a bed to open upstairs. PHYSICAL EXAMINATION: VITAL SIGNS: Afebrile, pulse 92, blood pressure 115/80, respirations 20, saturation 95% on room air. GENERAL: The patient is awake, alert, no apparent distress. LUNGS: Decreased air entry with a prolonged expiratory phase. There is minimal wheezing present. R honchi are there, but clear with cough and are less extensive. No crackles. HEART: Normal rate, regular. ABDOMEN: Soft, nontender, nondistended. Bowel sounds are positive. MUSCULOSKELETAL: No cyanosis or clubbing. There is no pitting in the bilateral lower extremities. NEUROLOGIC: Grossly nonfocal. ASSESSMENT: 1. Acute hypoxic and hypercapnic respiratory failure. 2. Chronic obstructive pulmonary disease with acute exacerbation, suspected. 3. Acute bronchitis. 4. Tobacco abuse. DISCUSSION AND PLAN: From my perspective, the patient is stable for transition out of the hospital o r transition to the medical unit. Before she goes home, I would like to see that she is a little bit more mobile than she has been over the last couple of days. She will need to be able to walk a coup le yards unassisted. She is quite resistant to moving.
[2018-06-18 11:11] VITALS: BP 100/72; TEMP 97.4
--- NOTE | 2018-06-18 11:50 | DIS ---
DISCHARGE DIAGNOSES: 1. Hypoxic respiratory failure, resolved. 2. Chronic obstructive pulmonary disease exacerbation, causing the hypoxic respiratory failure, reso lved. 3. Severe chronic obstructive pulmonary disease. 4. Anxiety. BRIEF SUMMARY OF HOSPITAL COURSE: This is a 53-year-old female who initially presented with a chief complaint of shortness of breath. Please see original history and physical for full details surround ing admission. The patient was seen by Pulmonary Critical Care during this hospitalization and was t reated for a COPD exacerbation. Treatment included steroids, nebulizers, supplemental oxygenation. During this hospitalization, the patient also endorsed and demonstrated a fair degree of anxiety whic h was responsive to benzodiazepine and at the time of discharge will be discharged with a limited 2 w [place] course of Xanax to use as needed. The patient will also be discharged on his COPD regimen includ ing a tapering prednisone dose, Levaquin, and nebulizer treatments. The patient is encouraged to fol low up with Pulmonary on an outpatient basis. The patient was noted to have some hypoxia with exerti on in particular. While at rest the patient appears to be maintaining O2 sats, but even with ADL act ivities such as ambulating across the room and out of wheelchair the patient has O2 saturation droppe d down to 87% that has been documented. The patient is recommended for O2 at home use, particularly with exertion. The remainder of the patient's chronic medical issues were stable during this hospitalization. CONSULTATION: Pulmonary Critical Care. MEDICATION RECONCILIATION: Please see the EMR for full details. The patient's home regimen will inc lude prednisone, oral taper, nicotine patch, levofloxacin 500 mg p.o. x7 days to complete a total 10- day course, DuoNeb to use at home p.r.n., Alprazolam 0.25 mg p.o. b.i.d. x2 week course as discussed above. The patient has also been recommended for outpatient cognitive behavioral therapy which she states he r PCP has also recommended as well. The patient is amenable to using this as a long-term therapy for her psychiatric and psychological issues. PATIENT'S CONDITION AT DISCHARGE: VITAL SIGNS: At the time of discharge, the patient's vital signs are stable. GENERAL: The patient is awake, alert, appropriate, in no acute distress, seated on the edge of the h ospital bed. CARDIOVASCULAR: S1, S2. No murmurs, rubs or gallops. No pitting pedal edema. RESPIRATORY: Reasonable air movement. Some conversational reasonable marginal air movement, diminis hed throughout. Clear to auscultation grossly, no wheezes, rales or rhonchi. ABDOMEN: Positive bowel sounds, soft, nontender to palpation. MUSCULOSKELETAL: Moving all 4 extremities independently. Able to ambulate independently. DISCHARGE AND FOLLOWUP INSTRUCTIONS: The patient has been asked to follow closely with her outpatien t team including her primary care provider, Pulmonary Critical Care, and Psychology as noted above. The patient has been counseled regarding smoking cessation. It is contemplated at this point in time .
[2018-06-18] MEDS: Fluticasone Propionate Nasal Spray 16 gm Bottle NASAL SCH (11:54)
[2018-06-18] MEDS: Nicotine 14 MG PATCH TD SCH (11:55)
== END 2018-06-18 16:10 | disposition home or self-care (01) | DRG 189 ==
LOC: ERS 02:08 → IMCU/EMU 04:35
PROVIDERS: ADMIT Hospitalist; ATTEND Hospitalist
DX: J96.21 Acute and chronic respiratory failure with hypoxia (principal); J44.1 Chronic obstructive pulmonary disease with (acute) exacerbation; J44.0 Chronic obstructive pulmonary disease with (acute) lower respiratory infection; J20.8 Acute bronchitis due to other specified organisms; F32.9 Major depressive disorder, single episode, unspecified; F41.9 Anxiety disorder, unspecified; N18.2 Chronic kidney disease, stage 2 (mild); J45.909 Unspecified asthma, uncomplicated; R00.0 Tachycardia, unspecified; J96.22 Acute and chronic respiratory failure with hypercapnia; F17.210 Nicotine dependence, cigarettes, uncomplicated
CPT/HCPCS: 36415; 80048; 80053; 82805; 85025; 90471; 90732; 94640; 94660; 96365; 96366; A4216; G0009; J1650; J1956; J2405; J2920; J3475; J7050; J7506; J7611; J7620

== ENCOUNTER 2018-07-21 20:07 | Inpatient (IN) | payer SELFPAY ==
[2018-07-21] MEDS ORDERED: Propofol 1,000 MG/100 ML VIAL IV ONE (20:21)
[2018-07-21 20:50] LABS: pH, Arterial 7.17 (7.35-7.45)
[2018-07-21 20:51] LABS: Base Excess (BEa) -7.5 mEq/L (-2.0 to +3.0); CO2 Tension 62.3 mmHg (35.0-45.0); Carboxyhemoglobin (COHb) 1.6 gm% (0.0-3.0); O2 Tension (PaO2) 176.6 mmHg (80.0-100.0); Potassium - ABG Lab 4.39 mmol/L (3.70-5.30)
[2018-07-21 20:52] LABS: ALV-art Gradient 99.525 (0-20); Analyzer IN Cardio ER; Calcium, Ionized 1.19 mmol/L (1.12-1.30); Puncture Site LRA
[2018-07-21 21:36] LABS: Actual Bicarbonate (HCO3a) 21.6 mEq/L (22-28); Base Excess (BEa) 6.2 mEq/L (-2.0 to +3.0); CO2 Tension 51.6 mmHg (35.0-45.0); Carboxyhemoglobin (COHb) 1.2 gm% (0.0-3.0); O2 Tension (PaO2) 151.3 mmHg (80.0-100.0); pH, Arterial 7.24 (7.35-7.45)
[2018-07-21 21:37] LABS: Analyzer IN Cardio ER; Calcium, Ionized 1.17 mmol/L (1.12-1.30); Puncture Site RRA
--- NOTE | 2018-07-21 21:41 | RAD ---
SINGLE VIEW OF THE ABDOMEN: 07/21/18 COMPARISON: None. HISTORY: NG tube placement. Altered mental status. FINDINGS: Single view of the abdomen shows an NG tube overlying the stomach. Contrast is seen in the kidneys fr om recent contrast examination. No suspicious calcifications are seen. IMPRESSION: NG tube located in the stomach. POS: [facility]
--- NOTE | 2018-07-21 21:43 | RAD ---
ONE VIEW CHEST: 07/21/18 HISTORY: ET tube placement. COMPARISON: 07/21/18 at 6:46 p.m. FINDINGS: Endotracheal tube is redemonstrated. Nasogastric tube extends down the diaphragm. Distal tip is not s een. Normal cardiac silhouette. The pulmonary vessels are slightly prominent. No masses or consolidat ion. Evaluation for pneumothorax is limited on this supine projection. IMPRESSION: Endotracheal and nasogastric tubes as above. POS: [facility]
[2018-07-21] MEDS ORDERED: Acetaminophen 650 MG/20.3 ML UDCUP PER TUBE PRN (22:03)
[2018-07-21] MEDS ORDERED: Ondansetron HCl/PF 4 MG/2 ML Vial IVP PRN (22:03)
[2018-07-21 22:31] LABS: Troponin I 0.188 ng/mL (< 0.028)
--- NOTE | 2018-07-21 22:38 | ULT ---
PELVIC ULTRASOUND: 07/21/18 COMPARISON: None. HISTORY: Positive test. Benzodiazepine overdose. Intubated patient with altered mental status. TECHNIQUE: Multiplanar montez scale and color doppler images were obtained in a transabdominal pelvic ultrasound. FINDINGS: The uterus and ovaries were not seen. The patient's boyfriend states that the patient has had a hyste rectomy. No free fluid is seen in the pelvis. A Alex catheter decompresses the urinary bladder. IMPRESSION: No reproductive organs visualized and there is no evidence of intrauterine or ectopic . POS: [facility]
[2018-07-21 23:47] VITALS: BMI 21.9
[2018-07-22] MEDS ORDERED: Lorazepam 2 MG/ML VIAL SLOW IVP PRN (00:06)
[2018-07-22] MEDS ORDERED: Fentanyl BOLUS 250 ML IVPB PRN (00:06)
[2018-07-22] MEDS ORDERED: Propofol BOLUS 1,000 MG/100 ML VIAL IV PRN (00:06)
[2018-07-22] MEDS ORDERED: Propofol 1,000 MG/100 ML VIAL IV PRN (00:06)
[2018-07-22] MEDS ORDERED: DISCONTINUE PREVIOUS NARCOTIC PAIN MEDICATIONS AND BENZODIAZEPINES FS SCH (00:06)
[2018-07-22] MEDS ORDERED: fentaNYL Citrate/PF 2,000 MCG in Sodium Chloride 0.9% 60 ML IV SCH (00:06)
[2018-07-22 01:50] LABS: Troponin I 0.601 ng/mL (< 0.028)
[2018-07-22] MEDS ORDERED: Enoxaparin Sodium 60 MG/0.6 ML SYRINGE SC SCH ×3 (03:30→21:00)
[2018-07-22 05:17] LABS: #Lymphocytes 1.1 thou/uL (1.20-3.40); #Monocytes 0.1 thou/uL (0.11-0.59); #Neutrophils 6.9 thou/uL (1.40-6.50); %Basophils 0.4 % (0.0-1.0); %Eosinophils 0.1 % (0.0-10.0); %Monocytes 1.2 % (0.0-10.0); %Neutrophils 85.3 % (42.0-75.0); Hemoglobin 12.5 g/dL (12.0-16.0); Mean Corpuscular HGB CONC 32.2 g/dL (32.0-36.0); Mean Corpuscular Hemoglobin 27.3 pg (27.0-31.0); Mean Corpuscular Volume 84.8 fL (78.0-98.0); Mean Platelet Volume 7.6 fL (7.4-10.4); Platelet Count 304 thou/uL (130-400); White Blood Cell (WBC) Count 8.1 thou/uL (4.8-10.8)
[2018-07-22 05:36] LABS: Anion Gap 11 mmol/L (10-20); BUN (Urea Nitrogen) 10 mg/dL (9.8-20.1); Calc. Creatinine Clearance 89 mL/min (70-130); Calcium 8.9 mg/dL (7.8-10.44); Carbon Dioxide 20 mmol/L (22-29); Chloride 112 mmol/L (98-107); Estimated GFR-MDRD 81; Glucose 157 mg/dL (70-105); Potassium 4.4 mmol/L (3.5-5.1); Sodium 139 mmol/L (136-145)
[2018-07-22 06:47] LABS: Actual Bicarbonate (HCO3a) 22.9 mEq/L (22-28); Base Excess (BEa) -1.9 mEq/L (-2.0 to +3.0); CO2 Tension 39.1 mmHg (35.0-45.0); Carboxyhemoglobin (COHb) 0.9 gm% (0.0-3.0); Hemoglobin (Hb) 13.1 g/dL (12.0-16.0); O2 Tension (PaO2) 101.9 mmHg (80.0-100.0); pH, Arterial 7.39 (7.35-7.45)
[2018-07-22 06:48] LABS: ALV-art Gradient 134.425 (0-20); Calcium, Ionized 1.21 mmol/L (1.12-1.30); Potassium - ABG Lab 4.54 mmol/L (3.70-5.30); Puncture Site RRA
[2018-07-22] MEDS ORDERED: DC Sedation Protocol FS ONE (08:18)
[2018-07-22] MEDS ORDERED: ALPRAZolam 0.25 MG TAB PO PRN (08:23)
[2018-07-22] MEDS: Nicotine 21 MG PATCH TD SCH (08:43)
[2018-07-22] MEDS ORDERED: ALPRAZolam 0.25 MG TAB PO SCH (09:00)
[2018-07-22] MEDS ORDERED: Enoxaparin Sodium 40 MG/0.4 ML SYRINGE SC SCH (09:00)
[2018-07-22] MEDS ORDERED: Famotidine/PF 20 mg/2ml Vial SLOW IVP SCH (09:00)
--- NOTE | 2018-07-22 09:01 | HP ---
DATE OF ADMISSION: 07/21/2018 PRIMARY CARE PHYSICIAN: Dr. Justine Alba. CODE STATUS: FULL CODE. TIME OF EVALUATION: 9:45 p.m. CHIEF COMPLAINT: Change in mental status and respiratory failure. HISTORY OF PRESENT ILLNESS: This is a 53 years old female patient. Patient admitted to the hospital with a COPD exacerbation that was severe, needing BiPAP. At this time, patient came to the hospital, was found by patient's boyfriend after having severe change in mental status, patient was confused, unable to establish a coherent conversation. The patient was taken to [place] and was intubated. She was found to be in acute hypercapnic respiratory failure, (2:00) resolved. Patient during my examination has been stable, she is already trying to wake up, as per boyfriend there is in the room. He noticed that there is one bottle of Xanax that is only in the house. He reported that most likely she has never expressed any wishes to harm or kill herself, and there is no evidence that the patient took extra doses of Xanax at this point. Last time, the patient was seen normal was before going to bed and in the morning basically, she was unable to wake up, completely was very confused. Otherwise, blood pressure, heart rate, and rest of vitals have been within normal limits. REVIEW OF SYSTEMS: Unable to obtain. All information provided being given by the patient's boyfriend and was expressed in the HPI. PAST MEDICAL HISTORY: Positive for COPD. PAST SURGICAL HISTORY: Appendectomy, hysterectomy, tonsillectomy. PSYCHIATRIC HISTORY: Includes depression, anxiety. FAMILY HISTORY:Unable to obtain SOCIAL HISTORY: Patient drinks rarely. No drugs. Patient smokes on a daily basis, has not stopped smoking after being recommended to do so in the last admission. DRUG ALLERGIES: No known drug allergies. REPORTED MEDICATIONS: Unknown at this point. PHYSICAL EXAMINATION: VITAL SIGNS: On presentation, blood pressure 160/98 with a heart rate of 94, respiratory rate was 14, temperature 97.2. GENERAL APPEARANCE: Patient is intubated, sedated. HEENT: Eye normal conjunctiva. Moist oral mucosa, anicteric. NECK: No JVD. RESPIRATORY: Bilateral air entry. No rales, no wheezing. Symmetrical expansion. CARDIOVASCULAR: Normal rate, regular rhythm. Patient is hypertensive. No murmurs, no gallop. No edema. ABDOMEN: Soft, normal bowel sounds. MUSCULOSKELETAL: Baseline range of motion and strength. No tenderness. SKIN: Warm and intact. No pallor, no rash, or redness. Peripheral pulses are present. Capillary refill seems to be intact. NEUROLOGIC: Patient is intubated, sedated, unable to fully explore, no evidence of any new focal weakness. PSYCHIATRIC: Unable to explore. IMAGING: EKG as discussed with performing physician from ER showed normal sinus rhythm with a rate of 100. No evidence of any acute ischemic event. [place] 156. Radiology was reviewed, reported by radiologist. CT head non-contrast showed no definite parenchymal hemorrhage, no definite axial hematoma, no midline shift. Basilar cisterns appeared to be patent. Brain volume is age appropriate, cortical montez white matter degeneration is preserved. Ventricles and sulci are (6:26) contrast head CT does not demonstrate any pathologic enhancement of the brain parenchyma. Impression, limited evaluation of the great vessels of the neck and head due to motion nevertheless, no evidence of significant stenosis of the cervical carotid arteries based on the nurse set criteria. Unremarkable CT angiogram of the head with limitations taken into consideration. Bilateral stocking veins, which is of uncertain significance (7:11) clinically for possible cavernous sinus thrombosis (7:14) is unremarkable. No emergent neurosurgical consultation may be beneficial, extensive emphysematous changes in the visualized lung parenchyma. Suboptimal and limited evaluation of the cervical spine. (7:32) provided, there is no evidence of cervical spine fracture. (7:43) ligamentous injuries. Chest films are negative, appropriate position of the ET tube and the NG tubes. LABORATORY DATA: Reviewed. Patient had a blood gas drawn before arrival. The first one showed a pH of 7.17, the second one 7.24. After adjustment of the settings, the first pCO2 was 62, the second one 51.6 with a pO2 of 151 and ABG was done on SIMV and mechanical rate 18 (8:52) oxygen 50, tidal volume 450 , pressure support of 10 and PEEP of 5. Troponin was 0.188. Hematology was reviewed. The patient has white count 10.7 with hemoglobin 14.4, platelet count 349. Coagulation was normal. Chemistry: Sodium 142, potassium 4.6, chloride 109, carbon dioxide 25, anion gap 13, BUN 11, creatinine 0.83, glucose 91, calcium 9.8. Total bilirubin 0.3, AST 14, ALT 12, alkaline phosphatase 115. CK 59. Beta natriuretic peptide 38.5. test qualitative was positive. Urine was negative. Toxicology was positive for benzodiazepine. ASSESSMENT AND PLAN: Critical care time spent more than 35 minutes used and bedside assessment, review and elaboration of records, stabilization of the patient and coordination of care. 1. Acute hypercapnic respiratory failure seen on the ABG and severe respiratory acidosis. Patient is improving. The second ABG that we have drawn in the ER after setting has been changed, we will continue to monitor. Patient is attempting to wake up now and we will increase the sedation, monitor in the ICU. We will consult ICU. We will follow recommendations. 2. He is heavy smoker, patient has been advised to quit smoking in previous admission, but she has been noncompliant. This was reviewed, reinforced now once she is more alert and extubated. 3. Elevated troponin, troponin 0.188, this is probably non-ST elevation myocardial infarction type 2 secondary to acute physical distress and respiratory failure. 4. Patient has had a positive test, the etiology of this has been positive, is unclear. We have verified that patient has hysterectomy with ultrasound, no ectopic was found either. This is something that might need to be addressed once patient is more stable. 5. Acute encephalopathy, unclear etiology, most likely secondary to hypercapnia ; however, patient's boyfriend is saying that there is one bottle of Xanax that he could not find in the house. When questioned about suicidal ideations are obtained and the boyfriend has expressed that she has never expressed any kind of these feelings of hurting or killing herself. Benzos are positive in urine, but unclear how many pills or what dose she took or if this has any relationship with the acute hypercapnic respiratory failure. For now, we will hold Xanax, this will need to be reconciled before patient discharge. 6. History of anxiety and bipolar disease. Patient has been followed by Psych doctor as an outpatient, patient will need to follow up with her doctor once ready to be discharged. Medications may need to be reconciled for this matter. 7. Deep venous thrombosis prophylaxis. MTDD
--- NOTE | 2018-07-22 09:04 | CON ---
DATE OF CONSULTATION: 07/22/2018 REASON FOR CONSULTATION: CCU admission with respiratory failure. The following encompassed 35 minutes critical care time. HISTORY OF PRESENT ILLNESS: This is a 53-year-old who apparently presented with altered mental stat us yesterday. She was intubated for respiratory depression, it is assumed that she may have had a Xa nax overdose. She also has underlying COPD. She has been seen by Dr. Thmopson in the hospital in the p ast. Currently, she is awake and following commands. PAST MEDICAL HISTORY: Remarkable for COPD. PAST SURGICAL HISTORY: Hysterectomy. FAMILY MEDICAL HISTORY: Remarkable for COPD. SOCIAL HISTORY: One pack per day smoker, does not consume alcohol. REVIEW OF SYSTEMS: Unobtainable, the patient is intubated. ALLERGIES: None. HOME MEDICATIONS: Not confirmed. See list in chart. PHYSICAL EXAMINATION: VITAL SIGNS: Temperature 98.6, pulse 112, blood pressure 152/70, O2 sat 95%. HEENT: Unremarkable. NECK: No JVD. LUNGS: Clear without wheezing or rhonchi. CARDIAC: S1, S2 regular. ABDOMEN: Soft, nontender. EXTREMITIES: No clubbing, cyanosis, or edema. NEUROLOGIC: Moves all 4 extremities without difficulty. LABORATORY AND X-RAY FINDINGS: Sodium 139, potassium 4.4, chloride 110, CO2 20, BUN 10, creatinine 0 .7, glucose 157, pH 7.39, pCO2 of 39, pO2 102 on SIMV rate 18, tidal volume 4, PEEP 5, pressure suppo rt 10, FiO2 40%, white blood cell count 8, hematocrit 39, platelet count 304. Chest x-ray shows no evidence of mass, effusion, or infiltrate. ASSESSMENT: 1. Presumed overdose of benzodiazepines. 2. Acute respiratory failure requiring mechanical ventilation. 3. Underlying chronic obstructive pulmonary disease. PLAN: 1. Extubate and observe. 2. She will need to probably restart her Xanax to prevent withdrawal symptoms. I will make the dose p.r.n. instead of scheduled. 3. She will likely need [facility] referral prior to discharge. 4. I would recommend discontinuing the therapeutic enoxaparin and switch to prophylactic.
--- NOTE | 2018-07-22 09:38 | PDOC.PN ---
- Subjective Encounter Start Date: 07/22/18 Encounter Start Time: 09:35 Subjective: awake - Objective Resuscitation Status: Resuscitation Status FULL:Full Resuscitation MAR Reviewed: Yes Vital Signs & Weight: Vital Signs (12 hours) Temp Pulse Resp BP Pulse Ox 07/22/18 08:17 110 H 19 98 07/22/18 08:00 16 07/22/18 07:13 97 07/22/18 07:00 98.6 F 07/22/18 06:35 98 109/74 07/22/18 05:30 21 H 07/22/18 04:00 98.9 F 07/22/18 03:47 18 07/22/18 02:11 98 107/75 07/22/18 02:00 18 07/22/18 00:00 99.6 F 07/21/18 23:53 18 99 07/21/18 23:13 97 146/101 H Weight Weight 140 lb 3.424 oz Most Recent Monitor Data Heart Rate from ECG 114 NIBP 121/76 NIBP BP-Mean 91 Respiration from ECG 27 SpO2 99 I&O: 07/21/18 07/22/18 07/23/18 06:59 06:59 06:59 Intake Total 62.8 85 Output Total 200 120 Balance -137.2 -35 Result Diagrams: 07/22/18 04:50 07/22/18 04:50 Phys Exam - Physical Examination Neck: no JVD Respiratory: clear to auscultation bilateral Cardiovascular: RRR, no significant murmur Gastrointestinal: soft, positive bowel sounds Musculoskeletal: no edema Dx/Plan (1) Drug overdose Code(s): T50.901A - POISONING BY UNSP DRUG/MEDS/BIOL SUBST, ACCIDENTAL, INIT Status: Acute Qualifiers: Encounter type: initial encounter Injury intent: undetermined intent Qualified Code(s): T50.904A - Poisoning by unspecified drugs, medicaments and biological substances, undetermined, initial encounter (2) COPD (chronic obstructive pulmonary disease) Status: Chronic Qualifiers: Emphysema type: unspecified (3) Tobacco abuse Code(s): Z72.0 - TOBACCO USE Status: Chronic (4) Acute on chronic respiratory failure with hypoxia and hypercapnia Code(s): J96.21 - ACUTE AND CHRONIC RESPIRATORY FAILURE WITH HYPOXIA; J96.22 - ACUTE AND CHRONIC RESPIRATORY FAILURE WITH HYPERCAPNIA Status: Acute - Plan extubated, doesnt remember events prior to admit -: cont nebs, etc -: [facility]? * .
[2018-07-22 10:31] LABS: CKMB 3.7 ng/mL (0-6.6)
--- NOTE | 2018-07-22 11:11 | PDOC.EVN ---
Event Note - Event Note Event Note: trop 0.18, 0.6, 0.9- cardiology consult
--- NOTE | 2018-07-22 15:24 | CON ---
DATE OF CONSULTATION: 07/22/2018 REASON FOR CONSULTATION: Non-STEMI. HISTORY OF PRESENT ILLNESS: Mrs. De La Cruz is a very pleasant 53-year-old white female who comes to the ospital for altered mentation. She has a history of COPD and was recently admitted with a COPD exace rbation. Apparently, she was found by her boyfriend to be confused and altered, so she was brought i o the hospital for further evaluation. She was found to be hypercapnic and she was intubated to pr otect her airway. She has since been extubated. Troponins were drawn and they were elevating, so Ca rdiology is being consulted for further evaluation and care. She does have a prescription for Xanax and there is a concern that possibly having taken some Xanax c ausing her to be altered and hypercapnic. On my evaluation, Mrs. De La Cruz tells me that she has had episodes of chest tightness in the past, mostly when she exerts herself, this has always been related to her COPD. She feels that she gets short of breath when she gets active. PAST MEDICAL HISTORY: 1. COPD. 2. Anxiety and depression. PAST SURGICAL HISTORY: 1. Appendectomy. 2. Hysterectomy. 3. Tonsillectomy. SOCIAL HISTORY: Social alcohol use, no drug use. She smokes about 1 pack a day for many years. OUTPATIENT MEDICATIONS: 1. Xanax p.r.n. 2. Prednisone 40 mg q.a.m. 3. Mucinex. 4. Nicoderm CQ. 5. Dulera. 6. Loratadine 10 mg a day. 7. Levaquin. 8. DuoNeb. 9. Flonase. ALLERGIES: No known drug allergies. REVIEW OF SYSTEMS: Twelve-point review of systems was done and is all negative unless stated in the history of present illness. PHYSICAL EXAMINATION: VITAL SIGNS: Temperature 98.8, pulse 117, respiratory rate 18, satting 97% on 2 liters nasal cannula . She is on home O2. Blood pressure 93/55. GENERAL: Awake, alert, oriented x3, in no distress. HEENT: Normocephalic, atraumatic. NECK: Supple. LUNGS: Lungs are mildly reduced breath sounds bilaterally. CARDIOVASCULAR: S1, S2, no S3, S4, no murmurs. ABDOMEN: Soft, positive bowel sounds. EXTREMITIES: No edema. SKIN: Warm and dry. LABORATORY WORK: Reviewed. CBC with a normal white count, hemoglobin of 12, hematocrit of 39, plate let count 304. ABG was reviewed. Chemistries were reviewed. Normal sodium and potassium, chloride 112, carbon dioxide of 20, anion gap of 11, BUN of 10, creatinine 0.75. Troponin was 0.18, then 0.60 , then 0.93 with a CK-MB of 3.7, glucose of 157. EKG was reviewed, normal sinus rhythm, no ischemic changes. Chest x-ray was reviewed. ASSESSMENT AND PLAN: 1. Non-ST elevation myocardial infarction. Most likely demand ischemia given her altered mentation and hypercapnia. 2. Chronic obstructive pulmonary disease. 3. Acute respiratory insufficiency, improved. 4. Chronic obstructive pulmonary disease. PLAN: 1. Certainly, she has risk factors for coronary artery disease with her smoking. She will need furt her risk stratification with stress testing as an outpatient. At this time, she needs to get over he r current issues and then follow up with Cardiology for planning on stress testing. 2. We would get an echocardiogram inpatient. If this shows any LV dysfunction, she may need a heart catheterization inpatient rather an outpatient. 3. Blood pressure could not take any antihypertensives that we used for LV dysfunction, so hopefully this is not the case. Thank you for letting us participate in the care of your patient. We will follow.
[2018-07-22] MEDS: Mometasone/Formoterol 120 PUFF INHALER INH SCH (18:53)
[2018-07-23 05:24] LABS: #Lymphocytes 2.2 thou/uL (1.20-3.40); #Monocytes 1.1 thou/uL (0.11-0.59); %Basophils 0.3 % (0.0-1.0); %Eosinophils 0.1 % (0.0-10.0); %Lymphocytes 14.6 % (21.0-51.0); Hemoglobin 11.8 g/dL (12.0-16.0); Mean Corpuscular HGB CONC 32.6 g/dL (32.0-36.0); Mean Corpuscular Hemoglobin 27.6 pg (27.0-31.0); Mean Corpuscular Volume 84.7 fL (78.0-98.0); Mean Platelet Volume 7.9 fL (7.4-10.4); Platelet Count 265 thou/uL (130-400); RBC Distribution Width 13.2 % (11.5-14.5); Red Blood Cell (RBC) Count 4.27 mill/uL (4.20-5.40); White Blood Cell (WBC) Count 15.4 thou/uL (4.8-10.8)
[2018-07-23 05:45] LABS: Anion Gap 11 mmol/L (10-20); BUN (Urea Nitrogen) 13 mg/dL (9.8-20.1); Calc. Creatinine Clearance 83 mL/min (70-130); Calcium 8.8 mg/dL (7.8-10.44); Carbon Dioxide 24 mmol/L (22-29); Chloride 110 mmol/L (98-107); Estimated GFR-MDRD 75; Glucose 139 mg/dL (70-105); Potassium 4.3 mmol/L (3.5-5.1); Sodium 141 mmol/L (136-145)
[2018-07-23] MEDS: Mometasone/Formoterol 120 PUFF INHALER INH SCH ×2 (07:23→18:57)
--- NOTE | 2018-07-23 08:05 | PDOC.PN ---
- Subjective Encounter Start Date: 07/23/18 Encounter Start Time: 08:04 Subjective: no chest pain, sob - Objective Resuscitation Status: Resuscitation Status FULL:Full Resuscitation MAR Reviewed: Yes Vital Signs & Weight: Vital Signs (12 hours) Temp Pulse Resp Pulse Ox 07/23/18 07:23 95 19 98 07/23/18 07:12 98 07/23/18 07:10 95 19 98 07/23/18 04:00 98 F 07/23/18 00:00 98.1 F 07/22/18 22:19 106 H 14 99 Weight Weight 141 lb 1.533 oz Most Recent Monitor Data Heart Rate from ECG 91 NIBP 115/76 NIBP BP-Mean 89 Respiration from ECG 24 SpO2 95 I&O: 07/22/18 07/23/18 07/24/18 06:59 06:59 06:59 Intake Total 62.8 2539 0 Output Total 200 1130 Balance -137.2 1409 0 Result Diagrams: 07/23/18 04:55 07/23/18 04:55 Phys Exam - Physical Examination Neck: no JVD Respiratory: clear to auscultation bilateral Cardiovascular: RRR, no significant murmur Gastrointestinal: soft, positive bowel sounds Musculoskeletal: no edema Dx/Plan (1) Drug overdose Code(s): T50.901A - POISONING BY UNSP DRUG/MEDS/BIOL SUBST, ACCIDENTAL, INIT Status: Acute Qualifiers: Encounter type: initial encounter Injury intent: undetermined intent Qualified Code(s): T50.904A - Poisoning by unspecified drugs, medicaments and biological substances, undetermined, initial encounter (2) COPD (chronic obstructive pulmonary disease) Status: Chronic Qualifiers: Emphysema type: unspecified (3) Tobacco abuse Code(s): Z72.0 - TOBACCO USE Status: Chronic (4) Acute on chronic respiratory failure with hypoxia and hypercapnia Code(s): J96.21 - ACUTE AND CHRONIC RESPIRATORY FAILURE WITH HYPOXIA; J96.22 - ACUTE AND CHRONIC RESPIRATORY FAILURE WITH HYPERCAPNIA Status: Acute (5) Demand ischemia Code(s): I24.8 - OTHER FORMS OF ACUTE ISCHEMIC HEART DISEASE Status: Acute - Plan move to floor -: ASA, ECHO -: appreciate Dr Lauren's input * .
[2018-07-23] MEDS: Nicotine 21 MG PATCH TD SCH (08:30)
[2018-07-23] MEDS: Aspirin 325 mg Enteric Coated Tablet PO SCH (08:45)
--- NOTE | 2018-07-23 15:11 | PDOC.CTH ---
Cardiology Progress Note - Subjective Doing well. Admits to diaphragmatic pain when coughing. No chest pain, tightness. - Objective Vital Signs Temp Pulse Resp BP Pulse Ox 07/23/18 14:42 107 H 12 07/23/18 12:00 107 H 16 111/63 96 07/23/18 11:02 103 H 16 07/23/18 10:05 97.9 F 103 H 16 124/70 94 L 07/23/18 08:00 98.3 F 96 07/23/18 07:23 95 19 98 07/23/18 07:12 98 07/23/18 07:10 95 19 98 07/23/18 04:00 98 F Weight 141 lb 1.533 oz 07/22/18 07/23/18 07/24/18 06:59 06:59 06:59 Intake Total 62.8 2539 880 Output Total 200 1130 Balance -137.2 1409 880 - Physical Examination General/Neuro: alert & oriented x3, NAD Neck: no JVD present Lungs: CTA, unlabored respirations Heart: RRR Abdomen: NT/ND Extremities: other: (no edema) - Telemetry Telemetry Rhythm: S tach. - Labs Result Diagrams: 07/23/18 04:55 07/23/18 04:55 Troponin/CKMB CK-MB (CK-2) 3.7 ng/mL (0-6.6) 07/22/18 09:59 Troponin I 0.930 ng/mL (< 0.028) H* 07/22/18 09:59 - Assessment/Plan 1. NSTEMI, likely demand from hypoxia 2. COPD 3. Presumed BZD overdose PLAN: - Continue current plan of care. - Outpatient cardiac work up. if echo normal. - Echo pending.
[2018-07-23] MEDS ORDERED: Famotidine 20 MG TAB PO SCH (22:15)
[2018-07-24 05:42] LABS: #Lymphocytes 2.3 thou/uL (1.20-3.40); #Monocytes 0.7 thou/uL (0.11-0.59); %Basophils 0.2 % (0.0-1.0); %Eosinophils 0.3 % (0.0-10.0); %Monocytes 5.1 % (0.0-10.0); %Neutrophils 78.4 % (42.0-75.0); Hemoglobin 11.8 g/dL (12.0-16.0); Mean Corpuscular HGB CONC 31.3 g/dL (32.0-36.0); Mean Corpuscular Hemoglobin 26.5 pg (27.0-31.0); Mean Corpuscular Volume 84.8 fL (78.0-98.0); Mean Platelet Volume 7.8 fL (7.4-10.4); Platelet Count 276 thou/uL (130-400); RBC Distribution Width 13.2 % (11.5-14.5); Red Blood Cell (RBC) Count 4.47 mill/uL (4.20-5.40); White Blood Cell (WBC) Count 14.1 thou/uL (4.8-10.8)
[2018-07-24 06:17] LABS: Anion Gap 14 mmol/L (10-20); BUN (Urea Nitrogen) 13 mg/dL (9.8-20.1); Calc. Creatinine Clearance 85 mL/min (70-130); Calcium 8.9 mg/dL (7.8-10.44); Carbon Dioxide 21 mmol/L (22-29); Chloride 111 mmol/L (98-107); Estimated GFR-MDRD 83; Glucose 119 mg/dL (70-105); Potassium 4.6 mmol/L (3.5-5.1); Sodium 141 mmol/L (136-145)
[2018-07-24] MEDS: Mometasone/Formoterol 120 PUFF INHALER INH SCH (06:33)
[2018-07-24] MEDS: Nicotine 21 MG PATCH TD SCH (08:41)
[2018-07-24] MEDS: Aspirin 325 mg Enteric Coated Tablet PO SCH (08:41)
[2018-07-24] MEDS ORDERED: Famotidine 20 MG TAB PO SCH (09:00)
[2018-07-24 17:56] VITALS: BP 118/74; TEMP 98.4
--- NOTE | 2018-07-24 18:44 | DIS ---
DATE OF ADMISSION: 07/21/2018 DATE OF DISCHARGE: 07/24/2018 PRIMARY CARE PHYSICIAN: Justine Alba M.D. DISCHARGE DIAGNOSES: 1. Acute hypoxic respiratory failure, likely due o benzodiazepine overdose and chronic obstructive p ulmonary disease. 2. Chronic obstructive pulmonary disease exacerbation. 3. History of tobacco abuse. 4. Drug overdose. 5. Demand ischemia. INHOUSE CONSULTATIONS: Cardiology, Dr. Lauren and Pulmonary Critical Care Medicine, Dr. Meraz. PROCEDURES DONE IN THE HOSPITAL: 1. Abdominal x-ray upon presentation after placement of a nasogastric tube in the ER. 2. Pelvic and renal ultrasound, no evidence of ectopic . 3. Transthoracic echocardiogram, which shows preserved ejection fraction at 50%-55%, normal diastoli c function. DISCHARGE MEDICATIONS: As follows, 1. Mucinex 1200 mg p.o. b.i.d. p.r.n. 2. Nicotine patch 14 mg every day. 3. Dulera 200/5 two puffs inhalation b.i.d. 4. Claritin p.r.n. 5. DuoNeb p.r.n. every 4 hours. 6. Flonase daily. New medication, Medrol Dosepak. HISTORY OF PRESENT ILLNESS: Ms. De La Cruz is a 53-year-old female with known history of COPD who presente d to the emergency room for altered mental status and respiratory failure. She was taken to [facility] emergency room upon presentation and was found to be in severe respiratory distress, failure of BiPAP and eventually was intubated and transferred to our facility for further evaluation. The [facility] iend who came with the patient gave history that the patient might have taken excessive Xanax that [facility] has at home. There was question of suicidal intention at that time as well. She was admitted with acute hypercapnic hypoxic respiratory failure. Upon presentation, she also was found to have elevat ed troponin of 0.188, likely non-ST elevation MS without EKG changes. She did have a false positive test for which she underwent ultrasound as she has had hysterectomy to rule out ectopic pre gnancy, which was negative. Please see admission history and physical for further details. HOSPITAL COURSE: The patient was seen by Dr. Meraz in the critical care unit and was extubated aft er the weaning trial and was observed and was eventually transferred to telemetry unit when she remai brisa stable. Her cardiac enzymes were trended and the troponin went up from 0.188-0.930. Dr. [facility] and she underwent an echocardiogram, which was unremarkable. Dr. Lauren's recomme ndation was that most likely this is secondary to hypoxic demand ischemia. No further workup was nec essary. Eventually, the patient was back to her baseline and was saturating well on room air and was hemodyna mically stable. She was seen and examined this morning and expressed the wishes to go home. [facility] s consulted and they saw and the patient was not exhibiting any suicidal ideation. She denied that t his was a suicide attempt either. She has been cleared by [facility] to go home with a safety plan and is being discharged. She was seen and examined prior to discharge by myself. PHYSICAL EXAMINATION: VITAL SIGNS: This morning, temperature 98.4, pulse of 90, respirations 16, saturating 96% on room ai r, blood pressure 118/74. GENERAL: No acute distress, awake, alert and oriented x3. CHEST: Clear to auscultation without any wheezing, rales or rhonchi. Rhythm is regular without any murmur, rubs or gallops. LABORATORY DATA: CBC shows WBC is 14.1. Serum chemistries show bicarbonate of 21, which was 20 upon presentation. The patient was asked if she needs any prescription, but reported that she had all of her medications at home. She was given prescription for the Medrol Dosepak. She was briefly treated with antibioti cs upon presentation, which was discontinued at the time of discharge as there was no evidence of inf ection. She is instructed to follow up with the primary care physician. Discharge plan was discussed with abimbola patient who verbalized understanding. Total time spent in the discharge of this patient, 32 minutes.
--- NOTE | 2018-07-26 10:02 | EKG ---
Test Reason : Blood Pressure : / mmHG Vent. Rate : 107 BPM Atrial Rate : 107 BPM P-R Int : 160 ms QRS Dur : 080 ms QT Int : 322 ms P-R-T Axes : 085 079 087 degrees QTc Int : 429 ms Sinus tachycardia Otherwise normal ECG When compared with ECG of 21-JUL-2018 20:41, (Unconfirmed) No significant change was found Confirmed by DR. Sakina MUSA ([id number]) on 07/26/2018 10:02:01 AM Referred By: BUBBA Confirmed By:DR. Sakina MUSA
--- NOTE | 2018-07-31 11:17 | EKG ---
Test Reason : Blood Pressure : / mmHG Vent. Rate : 100 BPM Atrial Rate : 100 BPM P-R Int : 156 ms QRS Dur : 074 ms QT Int : 332 ms P-R-T Axes : 082 075 063 degrees QTc Int : 428 ms Normal sinus rhythm Septal infarct , age undetermined Abnormal ECG Confirmed by LOREE Scott, ASTRID ([id number]), marketing editor RICHARD PARMAR ([id number]) on 07/31/2018 11:17:19 AM Referred By: LOREE Confirmed By:ASTRID RALPH M.D.
== END 2018-07-24 16:11 | disposition home or self-care (01) | DRG 917 ==
LOC: ERS 20:07 → CCU 22:50 → 2NO 07-23 10:13
PROVIDERS: ADMIT Hospitalist; ATTEND Hospitalist
PROC: 5A1935Z Respiratory Ventilation, Less than 24 Consecutive Hours (ICD-10-PCS; principal; 2018-07-21)
PROC: 0BH17EZ Insertion of Endotracheal Airway into Trachea, Via Natural or Artificial Opening (ICD-10-PCS; 2018-07-21)
DX: T42.4X1A Poisoning by benzodiazepines, accidental (unintentional), initial encounter (principal); I21.A1 Myocardial infarction type 2; J96.01 Acute respiratory failure with hypoxia; J96.02 Acute respiratory failure with hypercapnia; G93.40 Encephalopathy, unspecified; J44.9 Chronic obstructive pulmonary disease, unspecified; F17.210 Nicotine dependence, cigarettes, uncomplicated; F32.9 Major depressive disorder, single episode, unspecified; F41.9 Anxiety disorder, unspecified; Z79.899 Other long term (current) drug therapy
CPT/HCPCS: 36415; 71045; 74018; 76857; 80048; 82553; 82805; 84484; 84702; 85025; 93005; 93010; 93306; 94002; 94003; 94640; 96365; 99292; A4216; J1650; J2405; J2704; J2920; J7620; S0028